=== PATIENT | female | born 1970 | race Caucasian/White ===

== ENCOUNTER 2017-07-06 12:26 | Inpatient (IN) ==
[2017-07-06] MEDS ORDERED: Isovue-370 500 ML INFUS..BTL IV ONE (12:39)
[2017-07-06] MEDS ORDERED: Aspirin 81 MG TAB.CHEW PO ONE (12:42)
[2017-07-06] MEDS ORDERED: 0.9 % Sodium Chloride 1,000 ML IVC ONE ×2 (12:43→14:41)
[2017-07-06] MEDS ORDERED: *HR* Promethazine 25 MG/ML VIAL IVP ONE (12:43)
--- NOTE | 2017-07-06 12:46 | Emergency Department Note ---
Disposition Clinical Impression: Hyperglycemia Chest pain Qualifiers: Chest pain type: unspecified Qualified Code(s): R07.9 - Chest pain, unspecified Sepsis Qualifiers: Sepsis type: sepsis due to unspecified organism Qualified Code(s): A41.9 - Sepsis, unspecified organism Pneumonia Qualifiers: Pneumonia type: due to unspecified organism Laterality: left Lung location: unspecified part of lung Qualified Code(s): J18.9 - Pneumonia, unspecified organism Disposition: Admitted As Inpatient Condition: Fair Time of Disposition: 14:42 General Adult HPI - General Stated complaint: LAKESHA Time Seen by Provider: 07/06/17 12:31 Source: patient Mode of arrival: ambulatory Limitations: no limitations Nursing Notes Reviewed: Yes Vital Signs Reviewed: Yes - History of Present Illness HPI Narrative: 47 -year-old female with a history of diet-controlled diabetes and hyperlipidemia presents for evaluation of chest pain and shortness of breath. Patient states symptom onset was earlier today. Patient noted chest pain as well as shortness of breath. Chest pain is left sided with radiation of the left shoulder. Patient denies history of heart attacks. Patient notes chest pain is worse with deep inspiration. Patient denies any fevers but does note a thick sputum production. Patient denies any nausea or vomiting. Denies history of smoking. Denies history of blood clots in her lungs or her legs. Patient denies being on any oral contraceptive pills. States he has had her uterus removed. Patient denies any abdominal pain. No lower leg swelling. Pain Scale: 6 - Related Data Home Medications Medication Instructions Recorded Confirmed Atorvastatin Calcium [Lipitor] 20 mg PO DAILY 01/23/17 07/06/17 Cinnamon Bark [Cinnamon] 500 mg PO DAILY 01/23/17 07/06/17 Flaxseed Oil [[place]-3 Flaxseed Oil] 1,000 mg PO DAILY 01/23/17 07/06/17 [place]-3S/Dha/Epa/Fish Oil [Fish 1 tab PO DAILY 01/23/17 07/06/17 Oil [place]-3 Softgel] Allergies Allergy/AdvReac Type Severity Reaction Status Date / Time Penicillins Allergy Hives Verified 02/16/17 13:31 aspirin AdvReac Vomiting Verified 02/16/17 13:31 All systems ED: reviewed and negative except as stated. Constitutional: Denies: fever Cardiovascular: Reports: chest pain Respiratory: Reports: cough, dyspnea, sputum production Gastrointestinal: Denies: abdominal pain, nausea, vomiting Past Medical History - Past Medical History Source: patient Medical history: Reports: diabetes, hyperlipidemia Surgical history: Reports: hysterectomy Psychiatric history: Reports: no psych history - Social History Smoking Status: Never smoker Smokeless Tobacco Status: No Alcohol use: Reports: none Drug use: Reports: none Physical Exam - General Limitations: no limitations General appearance: alert, in no apparent distress - Head Head exam: atraumatic, normocephalic, normal inspection - Eye Eye exam: Present: normal appearance, PERRL, EOMI - ENT ENT exam: normal exam - Neck Neck exam: Present: normal inspection, trachea midline - Chest Chest inspection: Present: normal inspection, symmetric chest wall rise. Absent : tenderness - Respiratory Respiratory exam: Present: normal lung sounds bilaterally. Absent: respiratory distress, wheezes, prolonged expiratory phase - Cardiovascular Cardiovascular exam: Present: regular rate - Abdominal Exam Abdominal exam: Present: soft, Non-Tender - Extremities Exam Extremities exam: Present: normal inspection. Absent: pedal edema - Expanded Lower Extremity Exam Neurovascular/Tendon exam: Present: normal capillary refill - Back Exam Back exam: Present: normal inspection - Neurological Exam Neurological exam: Present: alert, oriented X3, CN II-XII intact - Skin Skin exam: Present: warm, dry, intact, normal color Course Course Narrative: Patient seen and examined. Patient appears quite anxious. Patient does have risk factors for ACS as well as pulmonary embolism. Patient will get a CT scan of the chest. Patient will also get basic lab work including troponin, EKG. Disposition pending. - Reevaluation(s) Reevaluation #1: Patient seen and examined. Patient states that her pain is better controlled. Resting comfortably. Time: 14:42 Vital Signs Temperature 99.6 F 07/06/17 12:28 Pulse Rate 105 07/06/17 12:28 Respiratory Rate 54 07/06/17 12:28 Blood Pressure 157/81 07/06/17 12:28 O2 Sat by Pulse Oximetry 91 07/06/17 12:28 Temperature 98 F 07/06/17 15:15 Pulse Rate 105 07/06/17 12:53 Respiratory Rate 20 07/06/17 15:15 Blood Pressure 131/71 07/06/17 15:15 O2 Sat by Pulse Oximetry 98 04/30/18 12:54 Oxygen Delivery Oxygen Delivery Room Air Medical Decision Making - MDM Narrative Medical decision making narrative: Patient presented with tachycardia tachypnea. Patient did have a concerning history of pleuritic chest pain. Patient had a CT [place] chest which revealed the etiology of the patient's symptoms. Patient has a lingula pneumonia consistent with her symptoms of productive cough. Patient also meet SIRS criteria with her tachycardia, tachypnea as well as her elevated white count. Given the patient's abnormal vitals as well as identify a source of infection the patient will be admitted to the hospital service for further evaluation monitoring to ensure symptom resolution. Patient will be treated for community acquired pneumonia. Patient did have chest pain is social with this but we believe this is strictly related the patient's pneumonia less likely related to ACS. - Lab Data Lab results reviewed: Yes I reviewed the patient's lab results. Result diagrams: 07/06/17 12:49 07/06/17 12:49 Lab Results 07/06/17 07/06/17 07/06/17 Range/Units 12:39 12:39 12:49 WBC 19.7 H (4.3-11.1) K/mcL RBC 5.31 H (3.82-4.97) M/mcL Hgb 14.8 (11.5-15.4) g/dL Hct 44.5 (35.3-44.9) % MCV 83.8 (83.0-100.0) fL MCH 27.9 L (28.0-33.3) pg MCHC 33.3 (31.6-35.5) g/dL RDW 13.0 (11.5-14.5) % Plt Count 382 (140-400) K/mcL MPV 10.5 (9.4-12.4) fL Immature Gran % 0.6 (0-4) % Seg Neutrophils % 88.1 % Lymphocytes % 5.3 % Monocytes % 5.6 % Eosinophils % 0.0 % Basophils % 0.4 % Neutrophils # 17.4 H (1.6-8.9) K/mcL Lymphocytes # 1.1 (0.6-4.6) K/mcL Monocytes # 1.1 (0.0-1.3) K/mcL Eosinophils # 0.0 (0.0-0.6) K/mcL Basophils # 0.1 (0.0-0.2) K/mcL Sodium (136-145) mEq/L Potassium (3.5-5.1) mEq/L Chloride (98-107) mEq/L Carbon Dioxide (23-29) mEq/L BUN (6-20) mg/dL Creatinine (0.60-1.20) mg/dL Est GFR ( Amer) (> 60) Est GFR (Non-Af Amer) (> 60) BUN/Creatinine Ratio (6-26) Glucose (70-105) mg/dL Calculated Osmolality (280-300) Calcium (8.6-10.3) mg/dL Troponin I (< 0.04) ng/mL B-Natriuretic Peptide 111 H (Less than 100) pg/mL Lipase 16 (11-82) Units/L 07/06/17 Range/Units 12:49 WBC (4.3-11.1) K/mcL RBC (3.82-4.97) M/mcL Hgb (11.5-15.4) g/dL Hct (35.3-44.9) % MCV (83.0-100.0) fL MCH (28.0-33.3) pg MCHC (31.6-35.5) g/dL RDW (11.5-14.5) % Plt Count (140-400) K/mcL MPV (9.4-12.4) fL Immature Gran % (0-4) % Seg Neutrophils % % Lymphocytes % % Monocytes % % Eosinophils % % Basophils % % Neutrophils # (1.6-8.9) K/mcL Lymphocytes # (0.6-4.6) K/mcL Monocytes # (0.0-1.3) K/mcL Eosinophils # (0.0-0.6) K/mcL Basophils # (0.0-0.2) K/mcL Sodium 133 L (136-145) mEq/L Potassium 3.9 (3.5-5.1) mEq/L Chloride 98 (98-107) mEq/L Carbon Dioxide 25 (23-29) mEq/L BUN 10 (6-20) mg/dL Creatinine 0.77 (0.60-1.20) mg/dL Est GFR ( Amer) > 60 (> 60) Est GFR (Non-Af Amer) > 60 (> 60) BUN/Creatinine Ratio 13 (6-26) Glucose 268 H (70-105) mg/dL Calculated Osmolality 284 (280-300) Calcium 9.5 (8.6-10.3) mg/dL Troponin I < 0.03 (< 0.04) ng/mL B-Natriuretic Peptide (Less than 100) pg/mL Lipase (11-82) Units/L - Radiology Data Radiology results reviewed: Yes I reviewed the patient's radiology results. Chest CTA 07/06/17 12:39 IMPRESSION: 1. No evidence of pulmonary embolism. 2. Dense consolidation in the lingula. Pattern may represent acute pneumonia. Recommend correlation with clinical findings. Follow-up imaging is recommended to ensure resolution and to exclude an underlying mass. 3. Reactive mediastinal and left hilar lymph node enlargement. D/ / Dashawn Dangelo MD / Dashawn Dangelo MD Interpreting Provider: Dashawn Dangelo MD Chest X-Ray 07/06/17 12:39 IMPRESSION: 1. Mild perihilar vascular prominence may be related to low volumes versus minimal vascular congestion. D/ / 07/06/2017 13:50:46 Candie Carrillo MD [facility] Inter[facility] Provider: Candie Carrillo MD - EKG Data EKG #1 EKG attestation: Yes I reviewed and interpreted this EKG. EKG shows normal: sinus rhythm Rate: tachycardia Rhythm: NSR [place]/QRS: left axis deviation, IVCD Interpretation: no acute changes, nonspecific ST-T wave changes S.B.A.REmily - S.B.A.REmily Situation: Demographics Background: Presenting Complaint Assessment: Vital Signs, Course and respsone to treatment, Patient/Family Expectation Recommendation: Barrier(s) to disposition S.B.A.REmily Report Given to: Dr. Chelsea Sanders Repor Time: 14:46
[2017-07-06] MEDS: Nitroglycerin 0.4 MG TAB.SUBL SL ONE ×3 (13:20→13:30)
[2017-07-06] MEDS ORDERED: *HR* FentaNYL (PF) 100 MCG/2 ML VIAL IVP ONE (13:23)
--- NOTE | 2017-07-06 13:24 | Emergency Department Note ---
Disposition Clinical Impression: Hyperglycemia Chest pain Qualifiers: Chest pain type: other chest pain Qualified Code(s): R07.89 - Other chest pain Sepsis Qualifiers: Sepsis type: sepsis due to unspecified organism Qualified Code(s): A41.9 - Sepsis, unspecified organism Pneumonia Qualifiers: Pneumonia type: due to unspecified organism Laterality: left Lung location: unspecified part of lung Qualified Code(s): J18.9 - Pneumonia, unspecified organism Disposition: Admitted As Inpatient Condition: Fair General Adult HPI - General Chief complaint: ED Shortness of Breath/Dyspnea Stated complaint: LAKESHA Time Seen by Provider: 07/06/17 12:31 Source: patient Mode of arrival: ambulatory Limitations: no limitations - History of Present Illness Pain Scale: 6 - Related Data Home Medications Medication Instructions Recorded Confirmed Atorvastatin Calcium [Lipitor] 20 mg PO DAILY 01/23/17 07/06/17 Cinnamon Bark [Cinnamon] 500 mg PO DAILY 01/23/17 07/06/17 Flaxseed Oil [[place]-3 Flaxseed Oil] 1,000 mg PO DAILY 01/23/17 07/06/17 [place]-3S/Dha/Epa/Fish Oil [Fish 1 tab PO DAILY 01/23/17 07/06/17 Oil [place]-3 Softgel] Allergies Allergy/AdvReac Type Severity Reaction Status Date / Time Penicillins Allergy Hives Verified 02/16/17 13:31 aspirin AdvReac Vomiting Verified 02/16/17 13:31 Constitutional: Denies: fever Cardiovascular: Reports: chest pain Respiratory: Reports: cough, dyspnea, sputum production Gastrointestinal: Denies: abdominal pain, nausea, vomiting Past Medical History - Past Medical History Medical history: Reports: diabetes, hyperlipidemia Surgical history: Reports: hysterectomy Psychiatric history: Reports: no psych history - Social History Smoking Status: Never smoker Smokeless Tobacco Status: No Alcohol use: Reports: none Drug use: Reports: none Physical Exam - General Limitations: no limitations General appearance: alert, in no apparent distress Course Vital Signs Temperature 99.6 F 07/06/17 12:28 Pulse Rate 105 07/06/17 12:28 Respiratory Rate 54 07/06/17 12:28 Blood Pressure 157/81 07/06/17 12:28 O2 Sat by Pulse Oximetry 91 07/06/17 12:28 Temperature 101.6 F H 07/06/17 18:32 Pulse Rate 99 07/06/17 18:32 Respiratory Rate 16 07/06/17 18:32 Blood Pressure 145/83 07/06/17 18:32 O2 Sat by Pulse Oximetry 95 07/06/17 18:32 Oxygen Delivery Oxygen Delivery Room Air Medical Decision Making - Lab Data Result diagrams: 07/06/17 12:49 07/06/17 12:49 Lab Results 07/06/17 07/06/17 07/06/17 Range/Units 12:39 12:39 12:49 WBC 19.7 H (4.3-11.1) K/mcL RBC 5.31 H (3.82-4.97) M/mcL Hgb 14.8 (11.5-15.4) g/dL Hct 44.5 (35.3-44.9) % MCV 83.8 (83.0-100.0) fL MCH 27.9 L (28.0-33.3) pg MCHC 33.3 (31.6-35.5) g/dL RDW 13.0 (11.5-14.5) % Plt Count 382 (140-400) K/mcL MPV 10.5 (9.4-12.4) fL Immature Gran % 0.6 (0-4) % Seg Neutrophils % 88.1 % Lymphocytes % 5.3 % Monocytes % 5.6 % Eosinophils % 0.0 % Basophils % 0.4 % Neutrophils # 17.4 H (1.6-8.9) K/mcL Lymphocytes # 1.1 (0.6-4.6) K/mcL Monocytes # 1.1 (0.0-1.3) K/mcL Eosinophils # 0.0 (0.0-0.6) K/mcL Basophils # 0.1 (0.0-0.2) K/mcL Sodium (136-145) mEq/L Potassium (3.5-5.1) mEq/L Chloride (98-107) mEq/L Carbon Dioxide (23-29) mEq/L BUN (6-20) mg/dL Creatinine (0.60-1.20) mg/dL Est GFR ( Amer) (> 60) Est GFR (Non-Af Amer) (> 60) BUN/Creatinine Ratio (6-26) Glucose (70-105) mg/dL Calculated Osmolality (280-300) Calcium (8.6-10.3) mg/dL Troponin I (< 0.04) ng/mL B-Natriuretic Peptide 111 H (Less than 100) pg/mL Lipase 16 (11-82) Units/L 07/06/17 Range/Units 12:49 WBC (4.3-11.1) K/mcL RBC (3.82-4.97) M/mcL Hgb (11.5-15.4) g/dL Hct (35.3-44.9) % MCV (83.0-100.0) fL MCH (28.0-33.3) pg MCHC (31.6-35.5) g/dL RDW (11.5-14.5) % Plt Count (140-400) K/mcL MPV (9.4-12.4) fL Immature Gran % (0-4) % Seg Neutrophils % % Lymphocytes % % Monocytes % % Eosinophils % % Basophils % % Neutrophils # (1.6-8.9) K/mcL Lymphocytes # (0.6-4.6) K/mcL Monocytes # (0.0-1.3) K/mcL Eosinophils # (0.0-0.6) K/mcL Basophils # (0.0-0.2) K/mcL Sodium 133 L (136-145) mEq/L Potassium 3.9 (3.5-5.1) mEq/L Chloride 98 (98-107) mEq/L Carbon Dioxide 25 (23-29) mEq/L BUN 10 (6-20) mg/dL Creatinine 0.77 (0.60-1.20) mg/dL Est GFR ( Amer) > 60 (> 60) Est GFR (Non-Af Amer) > 60 (> 60) BUN/Creatinine Ratio 13 (6-26) Glucose 268 H (70-105) mg/dL Calculated Osmolality 284 (280-300) Calcium 9.5 (8.6-10.3) mg/dL Troponin I < 0.03 (< 0.04) ng/mL B-Natriuretic Peptide (Less than 100) pg/mL Lipase (11-82) Units/L Critical Care Time Critical Care Time: Yes Total Critical Care Time: 40 Attestation: Critical care performed: Time is exclusive of separately billable procedures. Time includes: direct patient care, patient reassessment, coordination of patient care, interpretation of data (laboratory data, radiology data, and respiratory data), review of patient's medical records, medical consultation and documentation of patient care. Procedures included in critical care time: Procedures excluded from critical care time: Attestation Statement - Attestation Attestation: I examined this patient and my medical decision-making was reviewed with the Resident Physician. I agree with the documented findings, disposition and treatment plan as described except to the extent set forth below. She presents to the ED with chest pain and trouble breathing. Patient states she has had a productive cough for a couple weeks. Today she woke up short of breath having chest pain. No fever. No abdominal pain. No pain or swelling in her legs. No history of PE. On examination she is tachycardic. Rapid shallow breathing with clear lungs. Plan. Cardiac workup CTA chest. CTA shows a lingular pneumonia. Patient's tachycardic with a white count. She meets sepsis criteria. She is given IV Levaquin. Admitted to medicine.
[2017-07-06 13:34] LABS: Basophils # 0.1 K/mcL (0.0-0.2); Basophils % 0.4 %; Hematocrit 44.5 % (35.3-44.9); Hemoglobin 14.8 g/dL (11.5-15.4); Immature Granulocytes % 0.6 % (0-4); Lymphocytes # 1.1 K/mcL (0.6-4.6); Lymphocytes % 5.3 %; Mean Corpuscular HGB Conc 33.3 g/dL (31.6-35.5); Mean Corpuscular Hemoglobin 27.9 pg (28.0-33.3); Mean Corpuscular Volume 83.8 fL (83.0-100.0); Mean Platelet Volume 10.5 fL (9.4-12.4); Monocytes # 1.1 K/mcL (0.0-1.3); Monocytes % 5.6 %; Neutrophils # 17.4 K/mcL (1.6-8.9); Platelet Count 382 K/mcL (140-400); Red Blood Count 5.31 M/mcL (3.82-4.97); Segmented Neutrophils % 88.1 %
[2017-07-06 13:41] LABS: BUN/Creatinine Ratio 13 (6-26); Blood Urea Nitrogen 10 mg/dL (6-20); Calcium 9.5 mg/dL (8.6-10.3); Carbon Dioxide 25 mEq/L (23-29); Chloride 98 mEq/L (98-107); Glucose 268 mg/dL (70-105); Osmolality,Calculated 284 (280-300); Potassium 3.9 mEq/L (3.5-5.1); Sodium 133 mEq/L (136-145); Troponin I < 0.03 ng/mL (< 0.04); eGFR For African Americans > 60 (> 60); eGFR For Non-African Americans > 60 (> 60)
[2017-07-06] MEDS ORDERED: Levofloxacin 750 MG/150 ML 750 MG/150 ML BAG IVPB ONE (14:40)
[2017-07-06] MEDS ORDERED: Naloxone 0.4 MG/ML INJ IVP PRN (17:19)
[2017-07-06] MEDS ORDERED: Dextrose Gel 15 GM/37.5 ML TUBE PO PRN ×2 (17:24)
[2017-07-06] MEDS ORDERED: *HR* Dextrose 50 % in Water (Syg) 50 ML SYRINGE IVP PRN (17:24)
[2017-07-06] MEDS ORDERED: D5% in Water 1,000 ML IVC PRN (17:24)
[2017-07-06] MEDS ORDERED: *HR* Promethazine 25 MG/ML VIAL IVP PRN (17:29)
[2017-07-06] MEDS ORDERED: Nitroglycerin 0.4 MG TAB.SUBL SL PRN (17:29)
[2017-07-06] MEDS: Acetaminophen 325 MG TABLET PO PRN (17:47)
[2017-07-06] MEDS: Azithromycin 500 MG in D5% in Water 250 ML IVPB SCH (18:14)
[2017-07-06] MEDS: 0.9 % Sodium Chloride 1,000 ML IVC SCH (18:14)
[2017-07-06] MEDS: cefTRIAXone 2,000 MG in Water for inj. (sterile) 20 ML 20 ML IVPB SCH ×2 (18:21→19:41)
--- NOTE | 2017-07-06 18:27 | Internal Med History&Physical ---
<AnnaJason Shrestha - Last Filed: 07/06/17 19:44> Date of Encounter: 07/06/17 Time of Encounter: 17:00 Internal Medicine - H&P: HPI Chief complaint: SOB/Dyspnea/CP Admitted From: Emergency Dept Plans for Post Hospital Care: Home History of present illness: Ms. Charles is a 47 year old female w/PMH of DM and HLD presents from the ED w/ CC of SOB, dyspnea, and CP that began this morning and was accompanied by chills , nausea, and vomiting. Denies cardiac hx. Describes CP as left-sided pain/ pressure w/radiation to left shoulder. Reports cough w/rust-colored sputum. SOB worse w/exertion. Denies fever, sick contacts, or hx of PE/DVTs. Pt. states not feeling well for the past several days. States DM controlled w/diet currently. Denies recent illness, diarrhea, constipation, headache, changes in vision, unusual bleeding, abdominal pain, numbness, tingling, dizziness, lightheadedness , pre-syncope, or syncope. Past Med Surg Social Fam HX - Past Medical History Source: patient, old records reviewed, obtained from family Medical history: diabetes, hyperlipidemia Psychiatric history: no psych history - Past Surgical History Surgical History: hysterectomy (Total) - Social History Smoking Status: Former smoker Packs per day: 2 PPD - Reports quitting 16 years ago Smokeless Tobacco Status: No Alcohol use: none Drug use: none Current living situation: Home, With Family Activity Level: Independent ambulation Recent Out of Country Travel Within the Last 8 Weeks: No Exposure or Possible Exposure to Illness During Travel: No - Family History Mother Race: Family Member Ethnicity: Non- Living Status: Still Living Hx Family Cardiac Disorders: Yes (HTN, HLD) Hx Family Endocrine Disorder: Yes (DM) Father Race: Family Member Ethnicity: Non- Living Status: Still Living Hx Family Cardiac Disorders: Yes (HTN, ) Hx Family Cancer: Yes (Polycythemia vera) Hx Family Neurologic Disorders: Yes (Dementia) Brother Race: Family Member Ethnicity: Non- Living Status: Still Living Hx Family Medical Disorders: No Sister Race: Family Member Ethnicity: Non- Living Status: Still Living Hx Family Medical Disorders: No Internal Medicine - H&P: Meds Atorvastatin Calcium [Lipitor] 20 mg PO DAILY 01/23/17 [History] Cinnamon Bark [Cinnamon] 500 mg PO DAILY 01/23/17 [History] Flaxseed Oil [[place]-3 Flaxseed Oil] 1,000 mg PO DAILY 01/23/17 [History] [place]-3S/Dha/Epa/Fish Oil [Fish Oil [place]-3 Softgel] 1 tab PO DAILY 01/23/17 [ History] 3 Allergy/AdvReac Type Severity Reaction Status Date / Time Penicillins Allergy Hives Verified 02/16/17 13:31 aspirin AdvReac Vomiting Verified 02/16/17 13:31 All Systems PM: A 10-system review of systems was performed and is negative for pertinent findings except as documented above in the HPI. - Constitutional Constitutional: as per HPI, chills, no night sweats - EENT Eyes: no change in vision, no discharge, no pain, no photophobia Ears: no ear discharge, no ear pain, no tinnitus Nose, mouth and throat: no dysphagia, no nasal discharge, no neck pain, no sore throat - Breasts Breasts: as per HPI - Cardiovascular Cardiovascular ROS IM: as per HPI, chest pain, dyspnea, dyspnea on exertion, no diaphoresis, no lightheadedness, no palpitations, no syncope - Respiratory Respiratory: as per HPI, cough, dyspnea, dyspnea on exertion, change in phlegm color, pain with cough, no wheezing, no excessive phlegm production - Gastrointestinal Gastrointestinal: as per HPI, nausea, vomiting, no abdominal pain, no diarrhea, no hematemesis, no hematochezia, no melena - Genitourinary Genitourinary: no change in urinary stream, no dysuria, no flank pain, no hematuria Menstruation: as per HPI, post hysterectomy (Total) - Musculoskeletal Musculoskeletal ROS IM: no numbness, no tingling - Integumentary Integumentary IM: no rash, no unusual bruising - Neurological Neurological ROS: no confusion, no convulsions, no focal weakness, no numbness, no tingling, no tremor(s) - Psychiatric Psychiatric: as per HPI - Endocrine Endocrine IM: as per HPI - Hematologic/Lymphatic Hematologic/Lymphatic: no easy bruising - Allergic/Immunologic Allergic/Immunologic: as per HPI - Constitutional Vitals: Temp Pulse Resp BP Pulse Ox 99.4 F 95 16 117/74 95 04/30/18 16:56 07/06/17 16:56 07/06/17 16:56 07/06/17 16:56 07/06/17 16:56 General appearance: Present: cooperative, A&O X 3, pleasant, no acute distress, obese, answers questions appropriately - Head Head exam: Present: atraumatic, normocephalic - Eye Eye exam: Present: PERRL, conjuntiva pink, sclera anicteric Pupils: Present: PERRL - ENT ENT exam: Present: normal exam - Neck Neck exam general surgery: Present: normal inspection, supple, trachea midline. Absent: lymphadenopathy - Respiratory Respiratory exam: Present: CTAB, tachypnea. Absent: accessory muscle use, rales , rhonchi, wheezes - Cardiovascular Cardiovascular exam: Present: +S1, +S2, tachycardia. Absent: diastolic murmur, gallop, rubs, systolic murmur - GI/Abdominal GI/Abdominal exam: Present: normal bowel sounds, soft, no peritoneal signs. Absent: distended, tenderness - Rectal Rectal exam: Present: deferred - Additional comments: exam deferred. - Extremities Exam Extremities exam: Present: warm, radial pulses palpable and symmetrical. Absent : calf tenderness, cyanotic, pedal edema - Back Exam Back exam: Present: normal inspection - Neurological Exam Neurological exam: Present: CN II-XII intact, oriented X3, no focal deficits. Absent: pronater drift, facial droop, speech deficit - Psychiatric Psychiatric exam: Present: normal affect, normal mood - Skin Skin exam: Present: dry, intact Internal Med - H&P Results - Labs CBC & Chem 7: 07/06/17 12:49 07/06/17 12:49 - Diagnostic Studies Chest x-ray Additional comments: Impressions Chest X-Ray 07/06/17 12:39 IMPRESSION: 1. Mild perihilar vascular prominence may be related to low volumes versus minimal vascular congestion. D/ / 07/06/2017 13:50:46 Candie Carrillo MD / [facility] Inter[facility] Provider: Candie Carrillo MD CT scan - chest Additional comments: Impressions Chest CTA 07/06/17 12:39 IMPRESSION: 1. No evidence of pulmonary embolism. 2. Dense consolidation in the lingula. Pattern may represent acute pneumonia. Recommend correlation with clinical findings. Follow-up imaging is recommended to ensure resolution and to exclude an underlying mass. 3. Reactive mediastinal and left hilar lymph node enlargement. D/ / Dashawn Dangelo MD / Dashawn Dangelo MD Interpreting Provider: Dashawn Dangelo MD - Assessment and plan (1) CAP (community acquired pneumonia) Current Visit: Yes Status: Acute Assessment and plan: Acute CAP. CTA of the chest today shows no evidence PE but dense consolidation in the lingula. Pattern may represent acute pneumonia. Recommend correlation with clinical findings and follow-up imaging recommended to ensure resolution and to exclude underlying mass. Reactive mediastinal and left hilar lymph node enlargement. Pt. denies recent hospitalization. Acute SOB, dyspnea, cough w/ rust sputum, and CP to left side of chest. Pt. given IVPB levaquin in ED which will be DCd and will administer IVPB ceftriaxone 2,000 mg daily and IVPB azithromycin 500 mg daily for infection coverage. Will adjust abx coverage based on culture and panel results if warranted. Timed lactic acids ordered. 650 mg Tylenol Q6HR PRN and 600 mg Motrin Q6HR PRN to be alternated for fever control. Pt. and f/u labs to be monitored closely for signs of increasing infection/septic shock. Continuous cardiac telemetry. Supplemental O2 w/ titration and SpO2 monitoring. DuoNebs Q6HR scheduled. Tessalon 200 mg TID for cough. Pt. discussed w/Dr. Tran who agrees w/plan of care. Pt. is high risk for further infection, morbidity, and septic shock based on current sx and sepsis criteria. Inpatient. Qualifiers: Laterality: unspecified laterality Qualified Code(s): J18.9 - Pneumonia, unspecified organism (2) Sepsis Current Visit: Yes Status: Acute Assessment and plan: Acute sepsis criteria w/WBC of 19.7, HR 105, RR 24, temp 101.6F, and suspected pneumonia. Pt. received two 1L IV fluid boluses to be continued by 125 mL/HR. Lactic acid ordered which is 1.6 currently. Blood cultures x2. Sputum culture ordered. Respiratory Infection panel ordered. Pt. given IVPB levaquin in ED. Will DC and administer IVPB ceftriaxone 2,000 mg daily and IVPB azithromycin 500 mg daily for infection coverage. Will adjust abx coverage based on culture and panel results if warranted. Timed lactic acids ordered. 650 mg Tylenol Q6HR PRN and 600 mg Motrin Q6HR PRN to be alternated for fever control. Pt. and f/u labs to be monitored closely for signs of increasing infection/septic shock. Continuous cardiac telemetry. Supplemental O2 w/titration and SpO2 monitoring. Qualifiers: Sepsis type: sepsis due to unspecified organism Qualified Code(s): A41.9 - Sepsis, unspecified organism (3) Chest pain Current Visit: Yes Status: Acute Assessment and plan: Acute CP described as left-sided w/radiation to left shoulder. Cardiac versus CAP. CTA of the chest shows no evidence of pulmonary embolism, dense consolidation in the lingula which may represent pneumonia (recommendation for follow-up imaging to ensure resolution and to exclude underlying mass), reactive mediastinal and left hilar lymph node enlargement. Denies cardiac hx or work-up. Given 324 mg aspirin in ED. Lipitor 80 mg now ordered to be followed by 20 mg regular daily dosing tomorrow. Initial troponin <0.03. Will trend. Echocardiogram. Continuous cardiac telemetry. Nitro SL PRN. Consider cardiology consult if troponins begin to elevate or echo results abnormal. Monitor pt. closely. Qualifiers: Chest pain type: other chest pain Qualified Code(s): R07.89 - Other chest pain; R07.8 - Other chest pain (4) Nausea & vomiting Current Visit: Yes Status: Acute Assessment and plan: Acute N/V this morning. Phenergan 12.5 mg IVP every 6 hours when necessary for nausea vomiting. IVP Protonix 40 mg daily. Qualifiers: Vomiting type: cyclical vomiting Vomiting Intractability: non-intractable Qualified Code(s): G43.A0 - Cyclical vomiting, not intractable (5) SOB (shortness of breath) Current Visit: Yes Status: Acute Assessment and plan: Acute SOB related to current CAP dx. Denies home oxygen use. Supplemental O2 with titration and SPO2 monitoring. DuoNeb's every 6 scheduled. Tessalon 200 mg by mouth 3 times a day. (6) Elevated brain natriuretic peptide (BNP) level Current Visit: Yes Status: Acute Assessment and plan: Mildly elevated BNP at 111 on admission. No CHF hx. Getting echocardiogram d/t CP. Will monitor fluid status d/t need for IV fluids from sepsis. Monitor I&O and daily weight. (7) Hyponatremia Current Visit: Yes Status: Acute Assessment and plan: Acute hyponatremia w/sodium of 133 on admission. Pt. receiving IV 0.9 NS per sepsis criteria. Will monitor sodium level in f/u labs. (8) Diabetes Current Visit: Yes Status: Chronic Assessment and plan: Hx of chronic DM controlled by diet currently. BG 268 on admission. A1c in a.m. labs. BG checks ACHS. Will add low-dose correction insulin sliding scale w/ hypoglycemic protocol. 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 Lipid panel in a.m. labs. Continue pts. Lipitor. Qualifiers: Hyperlipidemia type: pure hypercholesterolemia Qualified Code(s): E78.00 - Pure hypercholesterolemia, unspecified; E78.0 - Pure hypercholesterolemia (10) DVT prophylaxis Current Visit: Yes Status: Acute Assessment and plan: Lovenox 40 mg SQ 0600 daily for DVT prophylaxis. Monitor pt. for signs of bleeding. - Time Spent With Patient Total time spent is greater than 50% in coordination of care (as documented) at patient's floor/unit and/or counseling patient: Greater than 35 minutes <Oren Tran - Last Filed: 07/07/17 07:12> Date of Encounter: 07/07/17 Internal Medicine - H&P: HPI History of present illness: Ms. Charles is a 47 year old female All Systems PM: A 10-system review of systems was performed and is negative for pertinent findings except as documented above in the HPI. - Constitutional Vitals: Temp Pulse Resp BP Pulse Ox 98.2 F 89 14 121/82 98 07/07/17 04:18 07/07/17 04:18 07/07/17 04:18 07/07/17 04:18 07/07/17 04:18 Internal Med - H&P Results - Labs CBC & Chem 7: 07/07/17 00:36 07/07/17 00:36 Labs: Short CBC 07/07/17 Range/Units 00:36 WBC 14.9 H (4.3-11.1) K/mcL Hgb 11.9 D (11.5-15.4) g/dL Hct 36.4 (35.3-44.9) % Plt Count 264 (140-400) K/mcL Neutrophils # 12.2 H (1.6-8.9) K/mcL BMP 07/07/17 00:36 Sodium 138 Potassium 3.5 Chloride 105 Carbon Dioxide 25 BUN 8 Creatinine 0.66 Glucose 194 H Calcium 8.6 Cardiac Enzymes 07/06/17 07/07/17 Range/Units 18:02 00:36 Troponin I < 0.03 < 0.03 (< 0.04) ng/mL Liver Function 07/07/17 Range/Units 00:36 Total Bilirubin 1.2 H (0.3-1.0) mg/dL AST 11 L (13-39) Units/L ALT 14 (7-52) Units/L Alkaline Phosphatase 64 (34-104) Units/L Albumin 3.6 (3.5-5.7) g/dL - Attending Attestation I saw and examined this patient independently, and my medical decision making was reviewed with the CHECKERER HAND/PA on 2017. I agree with the documented findings, assessment and treatment plan as described in the H&P. - Time Spent With Patient Total time spent is greater than 50% in coordination of care (as documented) at patient's floor/unit and/or counseling patient:
[2017-07-06] MEDS ORDERED: cefTRIAXone 2,000 MG in Water for inj. (sterile) 20 ML 20 ML IVP SCH (18:30)
[2017-07-06] MEDS ORDERED: Benzonatate 100 MG CAPSULE PO PRN (18:46)
[2017-07-06] MEDS: Pantoprazole 40 MG VIAL IVP SCH (19:51)
[2017-07-06 20:12] LABS: Adenovirus Not Detected (Not Detect); Bordetella Pertussis Not Detected (Not Detect); Chlamydophila pneumoniae Not Detected (Not Detect); Coronavirus 229E Not Detected (Not Detect); Coronavirus HKU1 Not Detected (Not Detect); Coronavirus NL63 Not Detected (Not Detect); Coronavirus OC43 Not Detected (Not Detect); Human Metapneumovirus Not Detected (Not Detect); Human Rhinovirus/Enterovirus ***DETECTED*** (Not Detect); Influenza A Subtype 2009 H1 Not Detected (Not Detect); Influenza A Untypeable Not Detected (Not Detect); Influenza B Not Detected (Not Detect); Mycoplasma pneumoniae Not Detected (Not Detect); Parainfluenza Virus 1 Not Detected (Not Detect); Parainfluenza Virus 2 Not Detected (Not Detect); Parainfluenza Virus 3 Not Detected (Not Detect); Parainfluenza Virus 4 Not Detected (Not Detect); Respiratory Syncytial Virus Not Detected (Not Detect)
[2017-07-06] MEDS ORDERED: Insulin LISPRO 300 UNITS/3 ML VIAL SQ SCH (21:00)
[2017-07-06] MEDS: Ipratropium/Albuterol Neb 3 ML IH SCH (21:27)
[2017-07-06] MEDS: Ibuprofen 400 MG TABLET PO PRN (22:12)
[2017-07-07 01:23] LABS: Basophils % 0.2 %; Hematocrit 36.4 % (35.3-44.9); Immature Granulocytes % 0.5 % (0-4); Lymphocytes # 1.1 K/mcL (0.6-4.6); Lymphocytes % 7.7 %; Mean Corpuscular HGB Conc 32.7 g/dL (31.6-35.5); Mean Corpuscular Hemoglobin 27.6 pg (28.0-33.3); Mean Corpuscular Volume 84.5 fL (83.0-100.0); Mean Platelet Volume 10.6 fL (9.4-12.4); Monocytes # 1.4 K/mcL (0.0-1.3); Monocytes % 9.5 %; Neutrophils # 12.2 K/mcL (1.6-8.9); Platelet Count 264 K/mcL (140-400); Red Blood Count 4.31 M/mcL (3.82-4.97); Red Cell Distribution Width 13.2 % (11.5-14.5); Segmented Neutrophils % 82.1 %
[2017-07-07 01:24] LABS: Hemoglobin 11.9 g/dL (11.5-15.4)
[2017-07-07 01:43] LABS: Alanine Aminotransferase 14 Units/L (7-52); Albumin 3.6 g/dL (3.5-5.7); Albumin/Globulin Ratio 1.3 (1.1-2.2); Alkaline Phosphatase 64 Units/L (34-104); Aspartate Amino Transferase 11 Units/L (13-39); BUN/Creatinine Ratio 12 (6-26); Bilirubin,Total 1.2 mg/dL (0.3-1.0); Blood Urea Nitrogen 8 mg/dL (6-20); Calcium 8.6 mg/dL (8.6-10.3); Carbon Dioxide 25 mEq/L (23-29); Chloride 105 mEq/L (98-107); Chol/HDL Ratio 2.6 (0-4.9); Cholesterol 108 mg/dL (< 200); Globulin 2.8 g/dL (2.4-3.5); Glucose 194 mg/dL (70-105); HDL Cholesterol 42 mg/dL (40-59); LDL Cholesterol,Calculated 51 mg/dL (0-99); Magnesium 1.6 mg/dL (1.6-2.6); Osmolality,Calculated 290 (280-300); Potassium 3.5 mEq/L (3.5-5.1); Sodium 138 mEq/L (136-145); Total Protein 6.4 g/dL (6.4-8.9); Triglycerides 73 mg/dL (< 150); eGFR For African Americans > 60 (> 60); eGFR For Non-African Americans > 60 (> 60)
[2017-07-07] MEDS: 0.9 % Sodium Chloride 1,000 ML IVC SCH ×2 (03:26→10:43)
[2017-07-07] MEDS: Acetaminophen 325 MG TABLET PO PRN (03:54)
[2017-07-07] MEDS: Ipratropium/Albuterol Neb 3 ML IH SCH ×4 (04:03→22:22)
[2017-07-07] MEDS: *HR* Enoxaparin 40 MG/0.4 ML SYRINGE SQ SCH (05:30)
[2017-07-07] MEDS: Ibuprofen 400 MG TABLET PO PRN ×3 (06:06→20:06)
[2017-07-07] MEDS ORDERED: Insulin LISPRO 300 UNITS/3 ML VIAL SQ SCH (07:30)
[2017-07-07] MEDS: Pantoprazole 40 MG VIAL IVP SCH (08:10)
[2017-07-07] MEDS: *HR* HYDROcodone/Acet 5/325 mg TABLET PO PRN ×2 (08:40→16:54)
[2017-07-07] MEDS: cefTRIAXone 1,000 MG in Water for inj. (sterile) 20 ML 10 ML IVP SCH (08:41)
--- NOTE | 2017-07-07 09:29 | Internal Med Progress Note ---
<Dejuan Fuentes - Last Filed: 07/07/17 11:37> Date of Encounter: 07/07/17 Time of Encounter: 09:24 - Assessment and plan (1) Sepsis Current Visit: Yes Status: Resolved Assessment and plan: - Patient was septic on presentation which has resolved - On admission, vital significant for tachycardia 105, respiratory rate 24, temperature 101.6, WBC of 19.7. lactic acid 1.6. Likely source of pneumonia - Received to 1 L normal saline boluses, started on Levaquin in emergency room which was changed to ceftriaxone and azithromycin on admission - No longer meeting SIRS criteria, however white count still elevated at 14.9 which has improved from 19.7 - Blood and sputum cultures pending - Chest x-ray and CTA showed no evidence of pulmonary embolism but did show a lingular consolidation possibly representing pneumonia - PCR positive for rhinovirus - Currently tolerating 2 L of oxygen at 98% Plan - Continue day #2 of antibiotics however will decrease ceftriaxone to 1 g every 24 hours with azithromycin - CTA shows a possible postobstructive pattern for her pneumonia and would likely benefit from a repeat scan after pneumonia has resolved - She was congratulated on smoking cessation - We will attempt to wean oxygen supplementation as tolerated Qualifiers: Sepsis type: sepsis due to unspecified organism Qualified Code(s): A41.9 - Sepsis, unspecified organism (2) Chest pain Current Visit: Yes Status: Acute Assessment and plan: - Acute chest pain which is pleuritic in nature - Pulmonary embolism was ruled out with CTA -Likely Secondary to pneumonia and coughing - Troponin was trended and negative 3 - Denies any cardiac history Plan - We will obtain echocardiogram to rule out cardiac etiology further - Symptomatic and supportive care with pain medication Qualifiers: Chest pain type: other chest pain Qualified Code(s): R07.89 - Other chest pain; R07.81 - Pleurodynia (3) CAP (community acquired pneumonia) Current Visit: Yes Status: Acute Assessment and plan: - As above for sepsis - Continue antibiotics, DuoNeb nebs, supplemental oxygen, Tessalon [place] Qualifiers: Laterality: left Lung location: unspecified part of lung Qualified Code(s ): J18.9 - Pneumonia, unspecified organism (4) Diabetes Current Visit: Yes Status: Chronic Assessment and plan: - History of diet-controlled diabetes mellitus - Hemoglobin A1c pending - Blood sugar mildly elevated today at 194 which is improved from admission - Likely elevated in the setting of infection. We will increase sliding scale to moderate Qualifiers: Diabetes mellitus type: type 2 Diabetes mellitus director long term care insulin use: without director long term care use Diabetes mellitus complication status: with unspecified complications Qualified Code(s): E11.8 - Type 2 diabetes mellitus with unspecified complications (5) SOB (shortness of breath) Current Visit: Yes Status: Acute Assessment and plan: As above for pneumonia and sepsis (6) Nausea & vomiting Current Visit: Yes Status: Resolved Assessment and plan: Resolved Phenergan 12.5 mg IVP every 6 hours when necessary for nausea vomiting. Qualifiers: Vomiting type: cyclical vomiting Vomiting Intractability: non-intractable Qualified Code(s): G43.A0 - Cyclical vomiting, not intractable (7) HLD (hyperlipidemia) Current Visit: Yes Status: Chronic Assessment and plan: - Hx of chronic HLD. Lipid panel in a.m. labs. - Lipid profile unremarkable in laboratory today - Continue home medications Qualifiers: Hyperlipidemia type: pure hypercholesterolemia Qualified Code(s): E78.00 - Pure hypercholesterolemia, unspecified (8) Elevated brain natriuretic peptide (BNP) level Current Visit: Yes Status: Acute Assessment and plan: - Mildly elevated BNP at 111 on admission. -No CHF hx. Getting echocardiogram d/t CP. - Will monitor fluid status d/t need for IV fluids from sepsis. Monitor I&O and daily weight. - Shortness of breath more likely related to lingular lobe consolidation pneumonia as above (9) DVT prophylaxis Current Visit: Yes Status: Acute Assessment and plan: Lovenox 40 mg SQ 0600 daily for DVT prophylaxis. Monitor pt. for signs of bleeding. (10) Hyponatremia Current Visit: Yes Status: Acute Assessment and plan: Resolved, currently 138 Acute hyponatremia w/sodium of 133 on admission. Pt. receiving IV 0.9 NS per sepsis criteria. Will monitor sodium level in f/u labs. - Time Spent With Patient Total time spent is greater than 50% in coordination of care (as documented) at patient's floor/unit and/or counseling patient: - Subjective Interval history: Patient was seen and examined at bedside this morning. She states that her shortness of breath has improved however she is still complaining of some mild pleuritic chest pain. Any further symptoms of fevers, chills, nausea, vomiting. States that overall she does feel better compared to admission. - Constitutional Vitals: Temp Pulse Resp BP Pulse Ox 98.3 F 82 16 111/63 94 07/07/17 07:36 07/07/17 07:36 07/07/17 07:36 07/07/17 07:36 07/07/17 07:36 General appearance: Present: cooperative, A&O X 3, pleasant, no acute distress, obese, answers questions appropriately Exam: Gen.: Vitals noted. No acute distress. AAOx3 HEENT: PERRL/EOMI, oropharynx clear, Normocephalic, atraumatic, MMM Cardiac: RRR, no murmur, +S1/S2, chest pain nonreproducible Pulmonary: Left lower lobe decreased breath sounds in the bases, equal chest expansion. Abdomen: soft, nontender, BS noted, no guarding MSK: ROM intact, no joint swelling noted Extremities: no BLE edema, nontender calf, no cyanosis or clubbing Neuro: A&Ox3, moves all extremities, no focal deficits Psych: Appropriate mood and behavior Internal Medicine: Result - Labs CBC & Chem 7: 07/07/17 00:36 07/07/17 00:36 Labs: Short CBC 07/07/17 Range/Units 00:36 WBC 14.9 H (4.3-11.1) K/mcL Hgb 11.9 D (11.5-15.4) g/dL Hct 36.4 (35.3-44.9) % Plt Count 264 (140-400) K/mcL Neutrophils # 12.2 H (1.6-8.9) K/mcL BMP 07/07/17 00:36 Sodium 138 Potassium 3.5 Chloride 105 Carbon Dioxide 25 BUN 8 Creatinine 0.66 Glucose 194 H Calcium 8.6 Cardiac Enzymes 07/06/17 07/07/17 Range/Units 18:02 00:36 Troponin I < 0.03 < 0.03 (< 0.04) ng/mL Liver Function 07/07/17 Range/Units 00:36 Total Bilirubin 1.2 H (0.3-1.0) mg/dL AST 11 L (13-39) Units/L ALT 14 (7-52) Units/L Alkaline Phosphatase 64 (34-104) Units/L Albumin 3.6 (3.5-5.7) g/dL Consult Discharge Plan - Plan Referrals: Mily Arzate, [employer]ES DIRECTOR [Primary Care Provider] - <Ricardo Tamez - Last Filed: 07/07/17 13:03> Date of Encounter: 07/07/17 - Assessment and plan (1) Pneumonia Current Visit: Yes Status: Suspected Qualifiers: Pneumonia type: due to Pneumococcus Laterality: left Lung location: lower lobe of lung Qualified Code(s): J13 - Pneumonia due to Streptococcus pneumoniae (2) Sepsis Current Visit: Yes Status: Resolved Qualifiers: Sepsis type: sepsis due to unspecified organism Qualified Code(s): A41.9 - Sepsis, unspecified organism (3) Chest pain Current Visit: Yes Status: Acute Qualifiers: Chest pain type: chest pain on breathing Qualified Code(s): R07.1 - Chest pain on breathing; R07.81 - Pleurodynia (4) Diabetes Current Visit: Yes Status: Chronic Qualifiers: Diabetes mellitus type: type 2 Diabetes mellitus director long term care insulin use: without senior living use Diabetes mellitus complication status: with hyperglycemia Qualified Code(s): E11.65 - Type 2 diabetes mellitus with hyperglycemia (5) CAP (community acquired pneumonia) Current Visit: Yes Status: Acute Qualifiers: Laterality: left Lung location: unspecified part of lung Qualified Code(s ): J18.9 - Pneumonia, unspecified organism (6) HLD (hyperlipidemia) Current Visit: Yes Status: Chronic Qualifiers: Hyperlipidemia type: mixed hyperlipidemia Qualified Code(s): E78.2 - Mixed hyperlipidemia (7) Hyponatremia Current Visit: Yes Status: Acute (8) Nausea & vomiting Current Visit: Yes Status: Resolved Qualifiers: Vomiting type: cyclical vomiting Vomiting Intractability: non-intractable Qualified Code(s): G43.A0 - Cyclical vomiting, not intractable (9) SOB (shortness of breath) Current Visit: Yes Status: Acute (10) DVT prophylaxis Current Visit: Yes Status: Acute - Time Spent With Patient Total time spent is greater than 50% in coordination of care (as documented) at patient's floor/unit and/or counseling patient: - Constitutional Vitals: Temp Pulse Resp BP Pulse Ox 98.7 F 89 18 142/82 93 07/07/17 10:50 07/07/17 10:50 07/07/17 10:50 07/07/17 10:50 07/07/17 10:50 Internal Medicine: Result - Labs CBC & Chem 7: 07/07/17 00:36 07/07/17 00:36 Labs: Short CBC 07/07/17 Range/Units 00:36 WBC 14.9 H (4.3-11.1) K/mcL Hgb 11.9 D (11.5-15.4) g/dL Hct 36.4 (35.3-44.9) % Plt Count 264 (140-400) K/mcL Neutrophils # 12.2 H (1.6-8.9) K/mcL BMP 07/07/17 00:36 Sodium 138 Potassium 3.5 Chloride 105 Carbon Dioxide 25 BUN 8 Creatinine 0.66 Glucose 194 H Calcium 8.6 Cardiac Enzymes 07/06/17 07/07/17 Range/Units 18:02 00:36 Troponin I < 0.03 < 0.03 (< 0.04) ng/mL Liver Function 07/07/17 Range/Units 00:36 Total Bilirubin 1.2 H (0.3-1.0) mg/dL AST 11 L (13-39) Units/L ALT 14 (7-52) Units/L Alkaline Phosphatase 64 (34-104) Units/L Albumin 3.6 (3.5-5.7) g/dL - Attending Attestation I examined this patient and my medical decision-making was reviewed with the Resident Physician on 07/07/17. I agree with the documented findings, disposition and treatment plan as described except to the extent set forth below. Ms Charles is currently admitted for sepsis and chest pain related to acute pneumonia. She remains moderate to high risk due to potential for worsening clinical status. Ms Charles is up in room going to bathroom. Seems somewhat dyspneic with movement but is currently off oxygen. No fever now. Still with some chest discomfort L chest and back. Coughing. Says it came on suddenly. Exam alert Mod distress due to some dyspnea Mucus membranes dry Heart reg Lungs with faint rhonchi left - no wheeze or rales Abd soft No edema I/P 1. Lingular pneumonia - most likely pneumococcus 2. sepsis 3. Chest pain related to pneumonia Further diagnoses and plan as above.
[2017-07-07 09:35] LABS: Estimated Average Glucose 200 mg/dl; Hemoglobin A1C 8.6 %
[2017-07-07] MEDS: Insulin LISPRO 300 UNITS/3 ML VIAL SQ SCH ×3 (12:14→20:44)
--- NOTE | 2017-07-07 16:11 | Electrocardiograph Report ---
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
[2017-07-07] MEDS: Azithromycin 500 MG in D5% in Water 250 ML IVPB SCH (16:54)
[2017-07-08] MEDS: *HR* HYDROcodone/Acet 5/325 mg TABLET PO PRN ×2 (02:32→12:56)
[2017-07-08] MEDS: Ipratropium/Albuterol Neb 3 ML IH SCH ×4 (03:26→21:04)
[2017-07-08] MEDS: *HR* Enoxaparin 40 MG/0.4 ML SYRINGE SQ SCH (05:37)
[2017-07-08 05:40] LABS: Basophils # 0.1 K/mcL (0.0-0.2); Basophils % 0.4 %; Eosinophils # 0.1 K/mcL (0.0-0.6); Eosinophils % 0.6 %; Hematocrit 34.4 % (35.3-44.9); Hemoglobin 11.2 g/dL (11.5-15.4); Immature Granulocytes % 0.5 % (0-4); Lymphocytes % 7.6 %; Mean Corpuscular HGB Conc 32.6 g/dL (31.6-35.5); Mean Corpuscular Hemoglobin 27.6 pg (28.0-33.3); Mean Corpuscular Volume 84.7 fL (83.0-100.0); Mean Platelet Volume 10.4 fL (9.4-12.4); Monocytes # 1.2 K/mcL (0.0-1.3); Monocytes % 8.8 %; Neutrophils # 11.1 K/mcL (1.6-8.9); Platelet Count 233 K/mcL (140-400); Red Blood Count 4.06 M/mcL (3.82-4.97); Red Cell Distribution Width 13.5 % (11.5-14.5); Segmented Neutrophils % 82.1 %
[2017-07-08 05:58] LABS: Alanine Aminotransferase 13 Units/L (7-52); Albumin 3.5 g/dL (3.5-5.7); Albumin/Globulin Ratio 1.1 (1.1-2.2); Alkaline Phosphatase 73 Units/L (34-104); Aspartate Amino Transferase 17 Units/L (13-39); BUN/Creatinine Ratio 11 (6-26); Bilirubin,Total 0.9 mg/dL (0.3-1.0); Blood Urea Nitrogen 7 mg/dL (6-20); Calcium 8.9 mg/dL (8.6-10.3); Carbon Dioxide 25 mEq/L (23-29); Chloride 103 mEq/L (98-107); Globulin 3.1 g/dL (2.4-3.5); Glucose 212 mg/dL (70-105); Osmolality,Calculated 286 (280-300); Sodium 136 mEq/L (136-145); Total Protein 6.6 g/dL (6.4-8.9); eGFR For African Americans > 60 (> 60); eGFR For Non-African Americans > 60 (> 60)
[2017-07-08] MEDS: Ibuprofen 400 MG TABLET PO PRN ×2 (08:13→23:22)
[2017-07-08] MEDS: cefTRIAXone 1,000 MG in Water for inj. (sterile) 20 ML 10 ML IVP SCH (08:14)
[2017-07-08] MEDS: Insulin LISPRO 300 UNITS/3 ML VIAL SQ SCH ×4 (08:22→21:14)
--- NOTE | 2017-07-08 10:50 | Internal Med Progress Note ---
<Dejuan Fuentes - Last Filed: 07/08/17 13:33> Date of Encounter: 07/08/17 Time of Encounter: 10:48 - Assessment and plan (1) Sepsis Current Visit: Yes Status: Resolved Assessment and plan: - Patient was septic on presentation which has resolved - On admission, vital significant for tachycardia 105, respiratory rate 24, temperature 101.6, WBC of 19.7. lactic acid 1.6. Likely source of pneumonia - Received to 1 L normal saline boluses, started on Levaquin in emergency room which was changed to ceftriaxone and azithromycin on admission - No longer meeting SIRS criteria, however white count still elevated at 13.5 which has improved from 14.9 - Blood and sputum cultures preliminary negative. - Chest x-ray and CTA showed no evidence of pulmonary embolism but did show a lingular consolidation possibly representing pneumonia - PCR positive for rhinovirus - Currently tolerating 2 L of oxygen at 92% Plan - Continue day #3 of antibiotics: ceftriaxone 1 g every 24 hours with azithromycin 250 mg Qday - CTA shows a possible postobstructive pattern for her pneumonia and would likely benefit from a repeat scan after pneumonia has resolved - She was congratulated on smoking cessation - We will attempt to wean oxygen supplementation as tolerated Qualifiers: Sepsis type: sepsis due to unspecified organism Qualified Code(s): A41.9 - Sepsis, unspecified organism (2) Chest pain Current Visit: Yes Status: Acute Assessment and plan: - Acute chest pain which is pleuritic in nature - Pulmonary embolism was ruled out with CTA -Likely Secondary to pneumonia and coughing - Troponin was trended and negative 3 - Denies any cardiac history - Echo on 07/08/17 unremarkable. Plan - Symptomatic and supportive care with pain medication Qualifiers: Chest pain type: chest pain on breathing Qualified Code(s): R07.1 - Chest pain on breathing; R07.81 - Pleurodynia (3) Diabetes Current Visit: Yes Status: Chronic Assessment and plan: - History of diet-controlled diabetes mellitus - Hemoglobin A1c 8.6%, previously diet controlled in 6s. - Blood sugar mildly elevated today at 212. - Patient is notably refusing insulin coverage as she does not take any medications at home. - Likely elevated in the setting of infection. - Advise follow up with PCP after discharge. Qualifiers: Diabetes mellitus type: type 2 Diabetes mellitus senior care insulin use: without senior care use Diabetes mellitus complication status: with hyperglycemia Qualified Code(s): E11.65 - Type 2 diabetes mellitus with hyperglycemia (4) CAP (community acquired pneumonia) Current Visit: Yes Status: Acute Assessment and plan: - As above for sepsis - Continue antibiotics, DuoNeb nebs, supplemental oxygen, Tessalon Perles Qualifiers: Laterality: left Lung location: unspecified part of lung Qualified Code(s ): J18.9 - Pneumonia, unspecified organism (5) SOB (shortness of breath) Current Visit: Yes Status: Acute Assessment and plan: As above for pneumonia and sepsis (6) Nausea & vomiting Current Visit: Yes Status: Resolved Assessment and plan: Resolved Phenergan 12.5 mg IVP every 6 hours when necessary for nausea vomiting. Qualifiers: Vomiting type: cyclical vomiting Vomiting Intractability: non-intractable Qualified Code(s): G43.A0 - Cyclical vomiting, not intractable (7) HLD (hyperlipidemia) Current Visit: Yes Status: Chronic Assessment and plan: - Hx of chronic HLD. Lipid panel in a.m. labs. - Lipid profile unremarkable in laboratory today - Continue home medications Qualifiers: Hyperlipidemia type: mixed hyperlipidemia Qualified Code(s): E78.2 - Mixed hyperlipidemia (8) Hyponatremia Current Visit: Yes Status: Resolved Assessment and plan: Resolved, currently 136 Acute hyponatremia w/sodium of 133 on admission. Pt. receiving IV 0.9 NS per sepsis criteria. Will monitor sodium level in f/u labs. (9) DVT prophylaxis Current Visit: Yes Status: Acute Assessment and plan: Lovenox 40 mg SQ 0600 daily for DVT prophylaxis. Monitor pt. for signs of bleeding. (10) Pneumonia Current Visit: Yes Status: Suspected Assessment and plan: - As above for sepsis. Community acquired. Pt reports improvement but remains SOB on exertion, diaphoretic. Qualifiers: Pneumonia type: due to Pneumococcus Laterality: left Lung location: lower lobe of lung Qualified Code(s): J13 - Pneumonia due to Streptococcus pneumoniae - Time Spent With Patient Total time spent is greater than 50% in coordination of care (as documented) at patient's floor/unit and/or counseling patient: less than 15 minutes - Subjective Interval history: Patient was seen and examined at bedside this morning. She states that her shortness of breath has improved however she is still complaining of some mild pleuritic chest pain and productive cough with brown sputum. Any further symptoms of fevers, chills, nausea, vomiting. States that overall she does feel better compared to yesterday. - Constitutional Vitals: Temp Pulse Resp BP Pulse Ox 99.6 F 100 18 154/83 92 07/08/17 08:10 07/08/17 08:10 07/08/17 08:10 07/08/17 08:10 07/08/17 08:10 General appearance: Present: cooperative, A&O X 3, pleasant, no acute distress, obese, answers questions appropriately Exam: Gen.: Vitals noted. No acute distress. AAOx3, mildly diaphoretic. HEENT: PERRL/EOMI, oropharynx clear, Normocephalic, atraumatic, MMM Cardiac: RRR, no murmur, +S1/S2 Pulmonary: Mild rhonchi at bases, decreased breath sounds diffusely. equal chest expansion Speaking in full sentences. Abdomen: soft, nontender, BS noted, no guarding, no rebound. MSK: ROM intact, no joint swelling noted Extremities: no BLE edema, nontender calf, no cyanosis or clubbing Neuro: A&Ox3, moves all extremities, no focal deficits Psych: Appropriate mood and behavior Internal Medicine: Result - Labs CBC & Chem 7: 07/08/17 05:03 07/08/17 05:03 Labs: Short CBC 07/08/17 Range/Units 05:03 WBC 13.5 H (4.3-11.1) K/mcL Hgb 11.2 L (11.5-15.4) g/dL Hct 34.4 L (35.3-44.9) % Plt Count 233 (140-400) K/mcL Neutrophils # 11.1 H (1.6-8.9) K/mcL BMP 07/08/17 05:03 Sodium 136 Potassium 4.0 Chloride 103 Carbon Dioxide 25 BUN 7 Creatinine 0.66 Glucose 212 H Calcium 8.9 Liver Function 07/08/17 Range/Units 05:03 Total Bilirubin 0.9 (0.3-1.0) mg/dL AST 17 (13-39) Units/L ALT 13 (7-52) Units/L Alkaline Phosphatase 73 (34-104) Units/L Albumin 3.5 (3.5-5.7) g/dL - Impressions Impressions Echocardiogram 07/08/17 17:27 Impressions: LVEF 60%. Normal left ventricular diastolic function. Normal right ventricular structure and function. Mild tricuspid regurgitation. Mild pulmonary hypertension. Left Ventricular Wall Motion: Rest Echo Findings All wall segments showed normal motion. Findings: Study Quality * Technically adequate exam. ECG Findings * Normal sinus rhythm. Left Ventricle * LVEF 60%. * Normal LV chamber size, wall thickness and function. * Normal left ventricular diastolic function. Right Ventricle * Normal right ventricular structure and function. Left Atrium * Normal left atrial size. Right Atrium * Normal right atrial size. Mitral Valve * Normal mitral valve structure. * No mitral stenosis. * Trace mitral regurgitation. Aortic Valve * No aortic regurgitation. * Aortic valve not well visualized. * No aortic stenosis. Tricuspid Valve * Tricuspid valve not well visualized. * Mild tricuspid regurgitation. * Estimated RA pressure is 3 mmHg. * Mild pulmonary hypertension. * Estimated RVSP is 40 mmHg. Pulmonic Valve * Pulmonic valve is not well visualized. * No pulmonic stenosis. * No pulmonic regurgitation. Pulmonary Artery * Pulmonary artery not well visualized. Aorta * Normally sized aortic root. * Ascending aorta not well visualized. Pericardium * There is no pericardial effusion present. Interatrial Septum * No evidence of PFO by color Doppler. IVC * Normal IVC dimensions and inspiratory collapse. Consult Discharge Plan - Plan Referrals: Mily Arzate, ALEX [Primary Care Provider] - 07/14/17 11:00 am <Ricardo Tamez - Last Filed: 07/08/17 17:29> Date of Encounter: 07/08/17 - Assessment and plan (1) Pneumonia Current Visit: Yes Status: Suspected Qualifiers: Pneumonia type: due to Pneumococcus Laterality: left Lung location: lower lobe of lung Qualified Code(s): J13 - Pneumonia due to Streptococcus pneumoniae (2) Chest pain Current Visit: Yes Status: Acute Qualifiers: Chest pain type: chest pain on breathing Qualified Code(s): R07.1 - Chest pain on breathing; R07.81 - Pleurodynia (3) Sepsis Current Visit: Yes Status: Resolved Qualifiers: Sepsis type: sepsis due to unspecified organism Qualified Code(s): A41.9 - Sepsis, unspecified organism (4) Diabetes Current Visit: Yes Status: Chronic Qualifiers: Diabetes mellitus type: type 2 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 senior care use Diabetes mellitus complication status: with hyperglycemia Qualified Code(s): E11.65 - Type 2 diabetes mellitus with hyperglycemia (5) DVT prophylaxis Current Visit: Yes Status: Acute (6) CAP (community acquired pneumonia) Current Visit: Yes Status: Acute Qualifiers: Laterality: left Lung location: unspecified part of lung Qualified Code(s ): J18.9 - Pneumonia, unspecified organism (7) SOB (shortness of breath) Current Visit: Yes Status: Acute (8) Nausea & vomiting Current Visit: Yes Status: Resolved Qualifiers: Vomiting type: cyclical vomiting Vomiting Intractability: non-intractable Qualified Code(s): G43.A0 - Cyclical vomiting, not intractable (9) HLD (hyperlipidemia) Current Visit: Yes Status: Chronic Qualifiers: Hyperlipidemia type: mixed hyperlipidemia Qualified Code(s): E78.2 - Mixed hyperlipidemia (10) Hyponatremia Current Visit: Yes Status: Resolved - Time Spent With Patient Total time spent is greater than 50% in coordination of care (as documented) at patient's floor/unit and/or counseling patient: - Constitutional Vitals: Temp Pulse Resp BP Pulse Ox 98.2 F 100 18 132/83 90 07/08/17 15:27 07/08/17 15:27 07/08/17 16:02 07/08/17 15:27 07/08/17 16:02 Internal Medicine: Result - Labs CBC & Chem 7: 07/08/17 05:03 07/08/17 05:03 Labs: Short CBC 07/08/17 Range/Units 05:03 WBC 13.5 H (4.3-11.1) K/mcL Hgb 11.2 L (11.5-15.4) g/dL Hct 34.4 L (35.3-44.9) % Plt Count 233 (140-400) K/mcL Neutrophils # 11.1 H (1.6-8.9) K/mcL BMP 07/08/17 05:03 Sodium 136 Potassium 4.0 Chloride 103 Carbon Dioxide 25 BUN 7 Creatinine 0.66 Glucose 212 H Calcium 8.9 Liver Function 07/08/17 Range/Units 05:03 Total Bilirubin 0.9 (0.3-1.0) mg/dL AST 17 (13-39) Units/L ALT 13 (7-52) Units/L Alkaline Phosphatase 73 (34-104) Units/L Albumin 3.5 (3.5-5.7) g/dL - Impressions Impressions Chest X-Ray 07/08/17 14:38 IMPRESSION: 1. Left base airspace consolidation, associated with moderate left pleural effusion. If patient has clinical symptoms of infection, this may represent pneumonia. 2. Small right pleural effusion with right base atelectasis. 3. Mild to moderate enlargement of the cardiac silhouette. D/ / Vishnu Vazquez MD / Vishnu Vazquez MD Interpreting Provider: Vishnu Vazquez MD Echocardiogram 07/08/17 17:27 Impressions: LVEF 60%. Normal left ventricular diastolic function. Normal right ventricular structure and function. Mild tricuspid regurgitation. Mild pulmonary hypertension. Left Ventricular Wall Motion: Rest Echo Findings All wall segments showed normal motion. Findings: Study Quality * Technically adequate exam. ECG Findings * Normal sinus rhythm. Left Ventricle * LVEF 60%. * Normal LV chamber size, wall thickness and function. * Normal left ventricular diastolic function. Right Ventricle * Normal right ventricular structure and function. Left Atrium * Normal left atrial size. Right Atrium * Normal right atrial size. Mitral Valve * Normal mitral valve structure. * No mitral stenosis. * Trace mitral regurgitation. Aortic Valve * No aortic regurgitation. * Aortic valve not well visualized. * No aortic stenosis. Tricuspid Valve * Tricuspid valve not well visualized. * Mild tricuspid regurgitation. * Estimated RA pressure is 3 mmHg. * Mild pulmonary hypertension. * Estimated RVSP is 40 mmHg. Pulmonic Valve * Pulmonic valve is not well visualized. * No pulmonic stenosis. * No pulmonic regurgitation. Pulmonary Artery * Pulmonary artery not well visualized. Aorta * Normally sized aortic root. * Ascending aorta not well visualized. Pericardium * There is no pericardial effusion present. Interatrial Septum * No evidence of PFO by color Doppler. IVC * Normal IVC dimensions and inspiratory collapse. - Attending Attestation I examined this patient and my medical decision-making was reviewed with the Resident Physician on 07/08/17. I agree with the documented findings, disposition and treatment plan as described except to the extent set forth below. Ms Charles is currently admitted with acute hypoxic resp failure due to pneumonia. She remains moderate to high risk due to potential for worsening clinical and respiratory status. Ms Charles is having worsening hypoxia. No fever documented. Cough present. Pain about the same. Dyspneic at rest and movement. Exam alert Mod distress at rest. Mucus membranes dry Heart distant. Lungs diminished on L. Scant wheeze Abd soft I/P 1. Acute hypoxic resp failure 2. PNA Will recheck CXR and start steroids. May need further workup tomorrow if no better. Further diagnoses and plan as above.
[2017-07-08] MEDS: predniSONE 20 MG TABLET PO SCH (14:42)
[2017-07-08] MEDS: Azithromycin 500 MG in D5% in Water 250 ML IVPB SCH (17:10)
[2017-07-08] MEDS ORDERED: Furosemide 20 MG/2 ML VIAL IVP ONE (17:29)
[2017-07-09] MEDS: Ipratropium/Albuterol Neb 3 ML IH SCH ×4 (03:52→22:35)
[2017-07-09 04:45] LABS: Basophils % 0.2 %; Eosinophils % 0.1 %; Hematocrit 33.6 % (35.3-44.9); Hemoglobin 11.2 g/dL (11.5-15.4); Immature Granulocytes % 0.5 % (0-4); Lymphocytes # 1.4 K/mcL (0.6-4.6); Mean Corpuscular HGB Conc 33.3 g/dL (31.6-35.5); Mean Corpuscular Hemoglobin 27.8 pg (28.0-33.3); Mean Corpuscular Volume 83.4 fL (83.0-100.0); Mean Platelet Volume 10.4 fL (9.4-12.4); Monocytes # 1.3 K/mcL (0.0-1.3); Neutrophils # 11.2 K/mcL (1.6-8.9); Platelet Count 296 K/mcL (140-400); Red Blood Count 4.03 M/mcL (3.82-4.97); Red Cell Distribution Width 13.3 % (11.5-14.5); Segmented Neutrophils % 80.2 %
[2017-07-09 05:15] LABS: Alanine Aminotransferase 12 Units/L (7-52); Albumin 3.8 g/dL (3.5-5.7); Albumin/Globulin Ratio 1.2 (1.1-2.2); Alkaline Phosphatase 77 Units/L (34-104); Aspartate Amino Transferase 8 Units/L (13-39); BUN/Creatinine Ratio 13 (6-26); Bilirubin,Total 0.7 mg/dL (0.3-1.0); Blood Urea Nitrogen 9 mg/dL (6-20); Calcium 9.2 mg/dL (8.6-10.3); Carbon Dioxide 28 mEq/L (23-29); Chloride 99 mEq/L (98-107); Globulin 3.2 g/dL (2.4-3.5); Glucose 239 mg/dL (70-105); Osmolality,Calculated 288 (280-300); Potassium 3.7 mEq/L (3.5-5.1); Sodium 136 mEq/L (136-145); eGFR For African Americans > 60 (> 60); eGFR For Non-African Americans > 60 (> 60)
[2017-07-09] MEDS: *HR* Enoxaparin 40 MG/0.4 ML SYRINGE SQ SCH (05:45)
[2017-07-09] MEDS: Insulin LISPRO 300 UNITS/3 ML VIAL SQ SCH ×4 (09:32→22:33)
[2017-07-09] MEDS: Levofloxacin 750 MG/150 ML 750 MG/150 ML BAG IVPB SCH (09:32)
[2017-07-09] MEDS: predniSONE 20 MG TABLET PO SCH (09:34)
--- NOTE | 2017-07-09 09:35 | Pulmonology Consult Note ---
Date of Encounter: 07/09/17 Time of Encounter: 09:15 Assessment and Plan (1) Acute respiratory failure with hypoxia Current Visit: Yes Status: Acute Patient is having worsening pneumonia now developing a parapneumonic effusion to continue O2 supplementation. (2) Pneumonia Current Visit: Yes Status: Suspected Worsening consolidation has some endobronchial secretions but no mucus plug initially she had a lingular consolidation now progressed to left lower lobe consolidation as a former smoker some initial hemoptysis will do a airway exam and with BAL . NPO after Midnight for Bronchoscopy . Qualifiers: Pneumonia type: due to Pneumococcus Laterality: left Lung location: lower lobe of lung Qualified Code(s): J13 - Pneumonia due to Streptococcus pneumoniae (3) Pleural effusion associated with pulmonary infection Current Visit: Yes Status: Acute Repeat CT imaging shows possible complicated Parapneumonic effusion spoke with Dr Girard most likely she is going to get Pig tail insertion History of Present Illness Consult date: 07/09/17 Requesting physician: Ricardo Tamez Reason for consult: dyspnea, cough, chest pain Chief complaint: Cough and Chest Pain History of present illness: 47 year old female with past medical history significant for DM,HLD comes with symptoms of cough , chest pain and shortness of breadth had some fever and chills had some on and off cough and sputum production in the previous months initially part of the illness she had some hemoptysis after that sputum was anneliese brown in color she had CTA initially negative for PA had some Lingular consolidation she has improving suddenly she developed shortness of breadth some diaphoresis , repeat CXR showed some increased opacity concerning for worsening pleural effusion . Pulmonary was consulted for possible thoracentesis.Patient denies any abdominal symptoms or any other neuro symptoms. Past Med Surg Social Fam HX - Past Medical History Medical history: diabetes, hyperlipidemia Psychiatric history: no psych history - Past Surgical History Surgical History: hysterectomy (Total) - Social History Smoking Status: Former smoker Packs per day: 2 PPD - Reports quitting 16 years ago Smokeless Tobacco Status: No Alcohol use: none Drug use: none - Family History Mother Race: Family Member Ethnicity: Non- Living Status: Still Living Hx Family Cardiac Disorders: Yes (HTN, HLD) Hx Family Endocrine Disorder: Yes (DM) Father Race: Family Member Ethnicity: Non- Living Status: Still Living Hx Family Cardiac Disorders: Yes (HTN, ) Hx Family Cancer: Yes (Polycythemia vera) Hx Family Neurologic Disorders: Yes (Dementia) Brother Race: Family Member Ethnicity: Non- Living Status: Still Living Hx Family Medical Disorders: No Sister Race: Family Member Ethnicity: Non- Living Status: Still Living Hx Family Medical Disorders: No Medications and Allergies Atorvastatin Calcium [Lipitor] 20 mg PO DAILY 01/23/17 [History] Cinnamon Bark [Cinnamon] 500 mg PO DAILY 01/23/17 [History] Flaxseed Oil [[place]-3 Flaxseed Oil] 1,000 mg PO DAILY 01/23/17 [History] [place]-3S/Dha/Epa/Fish Oil [Fish Oil [place]-3 Softgel] 1 tab PO DAILY 01/23/17 [ History] 3 Allergy/AdvReac Type Severity Reaction Status Date / Time Penicillins Allergy Hives Verified 02/16/17 13:31 aspirin AdvReac Vomiting Verified 02/16/17 13:31 All Systems: The remainder of the systems were reviewed and are negative Physical Examination Vital Signs: Vital Signs, Last 4 Hours Temp Pulse Resp BP Pulse Ox 07/09/17 06:32 98.1 F 87 16 127/85 92 Auscultation: left: diminished breath sounds Results - Laboratory Findings CBC and BMP: 07/09/17 04:16 07/09/17 04:16 Abnormal lab findings: Abnormal lab results WBC 14.0 K/mcL (4.3-11.1) H 07/09/17 04:16 Hgb 11.2 g/dL (11.5-15.4) L 07/09/17 04:16 Hct 33.6 % (35.3-44.9) L 07/09/17 04:16 MCH 27.8 pg (28.0-33.3) L 07/09/17 04:16 Neutrophils # 11.2 K/mcL (1.6-8.9) H 07/09/17 04:16 Glucose 239 mg/dL (70-105) H 07/09/17 04:16 POC Glucose 306 mg/dL (70-99) H 07/08/17 20:33 Hemoglobin A1c 8.6 % (-5.6) H 07/07/17 00:36 AST 8 Units/L (13-39) L 07/09/17 04:16 B-Natriuretic Peptide 111 pg/mL (Less than 100) H 07/06/17 12:39 Entero/Rhino (PCR) DETECTED (Not Detect) A 07/06/17 18:18 - Microbiology Findings Microbiology Findings: Microbiology, Last 48 Hours 07/06/17 19:00 Sputum Culture - Final Sputum 07/06/17 15:24 Blood Culture - Preliminary Peripheral Venipuncture No growth. 07/06/17 15:24 Blood Culture - Preliminary Peripheral Venipuncture No growth. 07/07/17 12:36 Legionella Antigen - Final Urine,Clean Catch Streptococcus pneumoniae Antigen (M - Final - Clinical Findings Intake & Output: Intake & Output 07/08/17 07/09/17 07/09/17 23:59 07:59 15:59 Intake Total 1450 / 1450 500 / 500 Output Total 3600 / 3600 1100 / 1100 Balance -2150 / -2150 -600 / -600 Weight 96.343 kg Consult Discharge Plan - Plan Referrals: Mily Arzate, C[facility] SPECIALIST [Primary Care Provider] - 07/14/17 11:00 am
[2017-07-09 10:20] LABS: Lactate Dehydrogenase 144 Units/L (140-271)
--- NOTE | 2017-07-09 11:10 | Internal Med Progress Note ---
<Dejuan Fuentes - Last Filed: 07/09/17 15:03> Date of Encounter: 07/09/17 Time of Encounter: 11:08 - Assessment and plan (1) Sepsis Current Visit: Yes Status: Resolved Assessment and plan: - Patient was septic on presentation which has resolved - On admission, vital significant for tachycardia 105, respiratory rate 24, temperature 101.6, WBC of 19.7. lactic acid 1.6. Likely source of pneumonia - Received to 1 L normal saline boluses, started on Levaquin in emergency room which was changed to ceftriaxone and azithromycin on admission - No longer meeting SIRS criteria, however white count still elevated at 14, however steroids were initiated yesterday - Blood and sputum cultures negative - Chest x-ray and CTA showed no evidence of pulmonary embolism but did show a lingular consolidation possibly representing pneumonia - PCR positive for rhinovirus - Currently tolerating 2 L of oxygen at 92% - Repeat x-rays on 07/08 and 07/09 showing pleural effusion on the left side moderate Plan - Continue day #4 of antibiotics: Changed ceftriaxone and azithromycin to Levaquin day #2 - CTA shows a possible postobstructive pattern for her pneumonia and would likely benefit from a repeat scan after pneumonia has resolved - She was congratulated on smoking cessation - We will attempt to wean oxygen supplementation as tolerated - Thoracentesis with 0 fluid removal. Pulmonology ordering repeat CT scan and plan for broncopsopy tomorrow, NPO midnight. - Consider adding doxycycline for MRSA coverage. 07/09: Chest x-rays obtained yesterday afternoon revealed a possible parapneumonic effusion which she is likely contributing to her increased shortness of breath. We have consulted pulmonology for their recommendations. We will also plan for interventional radiology to perform thoracentesis with fluid evaluation pending. We also increased the spectrum of her antibiotics from ceftriaxone and azithromycin to Levaquin yesterday. She does seem clinically improved. We will continue current course and monitor closely. Qualifiers: Sepsis type: sepsis due to unspecified organism Qualified Code(s): A41.9 - Sepsis, unspecified organism (2) Chest pain Current Visit: Yes Status: Acute Assessment and plan: - Acute chest pain which is pleuritic in nature. No complaints of pain today. - Likely secondary to pneumonia and parapneumonic effusion as demonstrated on CT and chest x-rays as above - Pulmonary embolism was ruled out with CTA -Likely Secondary to pneumonia and coughing - Troponin was trended and negative 3 - Denies any cardiac history - Echo on 07/08/17 unremarkable. Plan - Symptomatic and supportive care with pain medication Qualifiers: Chest pain type: chest pain on breathing Qualified Code(s): R07.1 - Chest pain on breathing; R07.81 - Pleurodynia (3) Diabetes Current Visit: Yes Status: Chronic Assessment and plan: - History of diet-controlled diabetes mellitus - Hemoglobin A1c 8.6%, previously diet controlled in 6s. - Blood sugar continues to be elevated in 200s - Patient is notably refusing insulin coverage as she does not take any medications at home. - Likely elevated in the setting of infection and steroid administration - Advise follow up with PCP after discharge. Qualifiers: Diabetes mellitus type: type 2 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 longterm use Diabetes mellitus complication status: with hyperglycemia Qualified Code(s): E11.65 - Type 2 diabetes mellitus with hyperglycemia (4) CAP (community acquired pneumonia) Current Visit: Yes Status: Acute Assessment and plan: - As above for sepsis - Continue antibiotics, DuoNeb nebs, supplemental oxygen, Tessalon Perles Qualifiers: Laterality: left Lung location: unspecified part of lung Qualified Code(s ): J18.9 - Pneumonia, unspecified organism (5) SOB (shortness of breath) Current Visit: Yes Status: Acute Assessment and plan: As above for pneumonia and sepsis (6) Nausea & vomiting Current Visit: Yes Status: Resolved Assessment and plan: Resolved Phenergan 12.5 mg IVP every 6 hours when necessary for nausea vomiting. Qualifiers: Vomiting type: cyclical vomiting Vomiting Intractability: non-intractable Qualified Code(s): G43.A0 - Cyclical vomiting, not intractable (7) HLD (hyperlipidemia) Current Visit: Yes Status: Chronic Assessment and plan: - Hx of chronic HLD. Lipid panel in a.m. labs. - Lipid profile unremarkable in laboratory today - Continue home medications Qualifiers: Hyperlipidemia type: mixed hyperlipidemia Qualified Code(s): E78.2 - Mixed hyperlipidemia (8) Hyponatremia Current Visit: Yes Status: Resolved Assessment and plan: Resolved, currently 136 Acute hyponatremia w/sodium of 133 on admission. Pt. receiving IV 0.9 NS per sepsis criteria. Will monitor sodium level in f/u labs. (9) Pneumonia Current Visit: Yes Status: Suspected Assessment and plan: - As above for sepsis. Community acquired. Pt reports improvement and is clinically improved. Further management as above Qualifiers: Pneumonia type: due to Pneumococcus Laterality: left Lung location: lower lobe of lung Qualified Code(s): J13 - Pneumonia due to Streptococcus pneumoniae (10) DVT prophylaxis Current Visit: Yes Status: Acute Assessment and plan: Lovenox 40 mg SQ 0600 daily for DVT prophylaxis. Monitor pt. for signs of bleeding. (11) Pleural effusion associated with pulmonary infection Current Visit: Yes Status: Acute Assessment and plan: - Pleural effusion as demonstrated on chest x-rays on 07/08 and 07/09 - These are associated with consolidation seen on CT scan on admission and also positive rhinovirus on Restoril infection panel - Pulmonology has been consult as above and recommends proceeding with thoracentesis this afternoon. - Thoracentesis 07/09 unsuccessful for fluid removal. Plan for broncoscopy tomorrow with Pulm. - CT chest was performed this afternoon which shows worsening of infiltrate. Discussed with pulmonology and will increase spectrum of antibiotics and plan for chest tube placement by IR. Plan - Pleural fluid analysis pending laboratory collection - Continue supplemental oxygen as needed - Further management as above for pneumonia and sepsis - Start ertapanem, levaquin, vancomycin triple therapy. - Time Spent With Patient Total time spent is greater than 50% in coordination of care (as documented) at patient's floor/unit and/or counseling patient: 25 - 35 minutes - Subjective Interval history: Patient was seen and examined at bedside this morning. States she is still experiencing shortness of breath particularly with exertion. Cough is mildly improved but still producing dark sputum. Denies any further symptoms of fevers , chills, her chest pain has resolved. She states overall she does feel improved from yesterday. - Constitutional Vitals: Temp Pulse Resp BP Pulse Ox 98.9 F 88 18 147/94 91 07/09/17 10:50 07/09/17 10:50 07/09/17 10:59 07/09/17 10:50 07/09/17 10:59 General appearance: Present: cooperative, A&O X 3, pleasant, no acute distress, obese, answers questions appropriately Exam: Gen.: Vitals noted. No acute distress. AAOx3 HEENT: PERRL/EOMI, oropharynx clear, Normocephalic, atraumatic, MMM Cardiac: RRR, no murmur, +S1/S2 Pulmonary: Markedly decreased breath sounds on left side extending from the bases to mid lung, equal chest expansion Abdomen: soft, nontender, BS noted, no guarding MSK: ROM intact, no joint swelling noted Extremities: no BLE edema, nontender calf, no cyanosis or clubbing Neuro: A&Ox3, moves all extremities, no focal deficits Psych: Appropriate mood and behavior Internal Medicine: Result - Labs CBC & Chem 7: 07/09/17 04:16 07/09/17 04:16 Labs: Short CBC 07/09/17 Range/Units 04:16 WBC 14.0 H (4.3-11.1) K/mcL Hgb 11.2 L (11.5-15.4) g/dL Hct 33.6 L (35.3-44.9) % Plt Count 296 (140-400) K/mcL Neutrophils # 11.2 H (1.6-8.9) K/mcL BMP 07/09/17 04:16 Sodium 136 Potassium 3.7 Chloride 99 Carbon Dioxide 28 BUN 9 Creatinine 0.67 Glucose 239 H Calcium 9.2 Liver Function 07/09/17 Range/Units 04:16 Total Bilirubin 0.7 (0.3-1.0) mg/dL AST 8 L (13-39) Units/L ALT 12 (7-52) Units/L Alkaline Phosphatase 77 (34-104) Units/L Albumin 3.8 (3.5-5.7) g/dL - Impressions Impressions Chest X-Ray 07/08/17 14:38 IMPRESSION: 1. Left base airspace consolidation, associated with moderate left pleural effusion. If patient has clinical symptoms of infection, this may represent pneumonia. 2. Small right pleural effusion with right base atelectasis. 3. Mild to moderate enlargement of the cardiac silhouette. D/ / Vishnu Vazquez MD / Vishnu Vazquez MD Interpreting Provider: Vishnu Vazquez MD Chest X-Ray 07/09/17 07:00 IMPRESSION: Stable bilateral effusions which are moderate on the left and small on the right, with bibasilar atelectasis and/or consolidation. D/ / Ignacio Henriquez MD / Ignacio Henriquez MD Interpreting Provider: Ignacio Henriquez MD Consult Discharge Plan - Plan Referrals: Mily Arzate [employer] SUPERVISOR [Primary Care Provider] - 07/14/17 11:00 am <Ricardo Tamez - Last Filed: 07/09/17 15:32> Date of Encounter: 07/09/17 - Assessment and plan (1) Acute respiratory failure with hypoxia Current Visit: Yes Status: Acute (2) Pneumonia Current Visit: Yes Status: Suspected Qualifiers: Pneumonia type: due to Pneumococcus Laterality: left Lung location: lower lobe of lung Qualified Code(s): J13 - Pneumonia due to Streptococcus pneumoniae (3) Pleural effusion associated with pulmonary infection Current Visit: Yes Status: Acute (4) Chest pain Current Visit: Yes Status: Resolved (5) Sepsis Current Visit: Yes Status: Resolved Qualifiers: Sepsis type: sepsis due to unspecified organism Qualified Code(s): A41.9 - Sepsis, unspecified organism (6) Diabetes Current Visit: Yes Status: Chronic Qualifiers: Diabetes mellitus type: type 2 Diabetes mellitus longterm insulin use: without longterm use Diabetes mellitus complication status: with hyperglycemia Qualified Code(s): E11.65 - Type 2 diabetes mellitus with hyperglycemia (7) DVT prophylaxis Current Visit: Yes Status: Acute (8) CAP (community acquired pneumonia) Current Visit: Yes Status: Acute Qualifiers: Laterality: left Lung location: unspecified part of lung Qualified Code(s ): J18.9 - Pneumonia, unspecified organism (9) SOB (shortness of breath) Current Visit: Yes Status: Acute (10) Nausea & vomiting Current Visit: Yes Status: Resolved Qualifiers: Vomiting type: cyclical vomiting Vomiting Intractability: non-intractable Qualified Code(s): G43.A0 - Cyclical vomiting, not intractable (11) HLD (hyperlipidemia) Current Visit: Yes Status: Chronic Qualifiers: Hyperlipidemia type: mixed hyperlipidemia Qualified Code(s): E78.2 - Mixed hyperlipidemia (12) Hyponatremia Current Visit: Yes Status: Resolved - Time Spent With Patient Total time spent is greater than 50% in coordination of care (as documented) at patient's floor/unit and/or counseling patient: - Constitutional Vitals: Temp Pulse Resp BP Pulse Ox 98.9 F 92 20 166/91 95 07/09/17 10:50 07/09/17 15:09 07/09/17 15:09 07/09/17 15:09 07/09/17 15:09 Internal Medicine: Result - Labs CBC & Chem 7: 07/09/17 04:16 07/09/17 04:16 Labs: Short CBC 07/09/17 Range/Units 04:16 WBC 14.0 H (4.3-11.1) K/mcL Hgb 11.2 L (11.5-15.4) g/dL Hct 33.6 L (35.3-44.9) % Plt Count 296 (140-400) K/mcL Neutrophils # 11.2 H (1.6-8.9) K/mcL BMP 07/09/17 04:16 Sodium 136 Potassium 3.7 Chloride 99 Carbon Dioxide 28 BUN 9 Creatinine 0.67 Glucose 239 H Calcium 9.2 Liver Function 07/09/17 Range/Units 04:16 Total Bilirubin 0.7 (0.3-1.0) mg/dL AST 8 L (13-39) Units/L ALT 12 (7-52) Units/L Alkaline Phosphatase 77 (34-104) Units/L Albumin 3.8 (3.5-5.7) g/dL - Impressions Impressions Chest Ultrasound 07/09/17 00:00 IMPRESSION: No significant left pleural effusion to safely perform thoracentesis D/ / Zia Mendenhall MD / Zia Mendenhall MD Interpreting Provider: Zia Mendenhall MD Chest X-Ray 07/09/17 07:00 IMPRESSION: Stable bilateral effusions which are moderate on the left and small on the right, with bibasilar atelectasis and/or consolidation. D/ / Ignacio Henriquez MD / Ignacio Henriquez MD Interpreting Provider: Ignacio Henriquez MD Chest CT 07/09/17 12:26 IMPRESSION: 1. Worsening area of consolidation involving the left upper and left lower lobes concerning for worsening pneumonia. Additional increased density in the right lower lobe as well as 8 mm nodular density in the right upper lobe may reflect additional sites of pneumonia. Follow-up imaging after definitive treatment and resolution of symptoms (4-6 weeks) is recommended to reassess. 2. Right paratracheal lymph nodes are likely reactive. Attention on follow-up imaging is recommended. D/ / Dejuan Ceballos / Dejuan Ceballos Interpreting Provider: Dejuan Ceballos - Attending Attestation I examined this patient and my medical decision-making was reviewed with the Resident Physician on 07/09/17. I agree with the documented findings, disposition and treatment plan as described except to the extent set forth below. Ms Charles is currently admitted for acute hypoxic resp failure due to pneumonia. She remains moderate to high risk due to potential for worsening clinical and respiratory status. Ms Charles is breathing a little better today. No fever. Diuresed a lot last night. Less cough today. Less pain. Exam alert Moderate resp distress Mucus membranes dry Heart reg Diminished breath sounds on L with egophony. Abd soft I/P 1. Pneumonia - worsening on CXR with effusion. Pulm consult today. To have chest tube placed. Bronch tomorrow. 2. Sepsis resolved. Further diagnoses and plan as above.
[2017-07-09] MEDS: Ibuprofen 400 MG TABLET PO PRN ×2 (11:42→18:27)
[2017-07-09] MEDS ORDERED: Isovue-370 500 ML INFUS..BTL IV ONE (12:26)
[2017-07-09] MEDS: Ertapenem 1,000 MG in 0.9 % Sodium Chloride Mini Bag 100 ML IVPB SCH (16:19)
[2017-07-09 16:39] LABS: Total Protein,Pleural Fluid 4.2 g/dL (No Ref Range)
[2017-07-09 17:33] LABS: Appearance of Pleural Fl Bloody (Clear)
[2017-07-09 17:34] LABS: RBC,Pleural Fluid 0.095 M/mcL
[2017-07-09] MEDS ORDERED: Doxycycline 100 MG in 0.9 % Sodium Chloride Mini Bag 100 ML IVPB SCH (18:00)
[2017-07-09] MEDS: *HR* HYDROcodone/Acet 5/325 mg TABLET PO PRN (22:38)
[2017-07-10] MEDS: Ipratropium/Albuterol Neb 3 ML IH SCH ×4 (03:26→21:45)
[2017-07-10 04:53] LABS: Basophils # 0.1 K/mcL (0.0-0.2); Basophils % 0.5 %; Eosinophils % 0.3 %; Hematocrit 35.8 % (35.3-44.9); Hemoglobin 11.9 g/dL (11.5-15.4); Immature Granulocytes % 0.8 % (0-4); Lymphocytes # 1.5 K/mcL (0.6-4.6); Lymphocytes % 13.4 %; Mean Corpuscular HGB Conc 33.2 g/dL (31.6-35.5); Mean Corpuscular Hemoglobin 27.5 pg (28.0-33.3); Mean Corpuscular Volume 82.7 fL (83.0-100.0); Mean Platelet Volume 10.3 fL (9.4-12.4); Monocytes # 1.1 K/mcL (0.0-1.3); Monocytes % 9.8 %; Neutrophils # 8.2 K/mcL (1.6-8.9); Platelet Count 368 K/mcL (140-400); Red Blood Count 4.33 M/mcL (3.82-4.97); Red Cell Distribution Width 13.5 % (11.5-14.5); Segmented Neutrophils % 75.2 %
[2017-07-10 05:04] LABS: Alanine Aminotransferase 13 Units/L (7-52); Albumin 3.7 g/dL (3.5-5.7); Alkaline Phosphatase 77 Units/L (34-104); Aspartate Amino Transferase 8 Units/L (13-39); BUN/Creatinine Ratio 18 (6-26); Bilirubin,Total 0.5 mg/dL (0.3-1.0); Blood Urea Nitrogen 12 mg/dL (6-20); Calcium 9.3 mg/dL (8.6-10.3); Carbon Dioxide 27 mEq/L (23-29); Chloride 100 mEq/L (98-107); Globulin 3.7 g/dL (2.4-3.5); Glucose 201 mg/dL (70-105); Osmolality,Calculated 291 (280-300); Potassium 3.8 mEq/L (3.5-5.1); Sodium 138 mEq/L (136-145); Total Protein 7.4 g/dL (6.4-8.9); eGFR For African Americans > 60 (> 60); eGFR For Non-African Americans > 60 (> 60)
[2017-07-10] MEDS: *HR* Enoxaparin 40 MG/0.4 ML SYRINGE SQ SCH (06:07)
[2017-07-10] MEDS: Insulin LISPRO 300 UNITS/3 ML VIAL SQ SCH ×4 (06:51→21:15)
--- NOTE | 2017-07-10 08:50 | Pulmonology Progress Note ---
Date of Encounter: 07/10/17 Time of Encounter: 08:30 Assessment and Plan (1) Acute respiratory failure with hypoxia Current Visit: Yes Status: Acute Secondary to left upper and lower lobe pneumonia to continue O2 supplementation . (2) Pneumonia Current Visit: Yes Status: Suspected Patient has left upper lobe pneumonia and left lower pneumonia will do bronchoscopy airway examination with BAL . To do Incentive spirometry and flutter valve . Qualifiers: Pneumonia type: due to Pneumococcus Laterality: left Lung location: lower lobe of lung Qualified Code(s): J13 - Pneumonia due to Streptococcus pneumoniae (3) Pleural effusion associated with pulmonary infection Current Visit: Yes Status: Acute Patient had pig tail insertion yesterday , pleural fluid gram stain is negative there is no pus so fits the criteria of complicated para pneumonic effusion . Will repeat the imaging over the weekend Subjective Principal diagnosis: Pneumonia with Parapneumonic effusion Interval history: Patient has some pain over the pig tail , denies any fever or chills , has some cough and sputum production . Objective PUL Vital signs: Last Vital Signs Temp 98.2 F 07/10/17 07:27 Pulse 77 07/10/17 07:27 Resp 15 07/10/17 07:27 BP 151/90 07/10/17 07:27 Pulse Ox 93 07/10/17 07:27 Auscultation: left: diminished breath sounds Results - Laboratory Findings CBC and BMP: 07/10/17 04:02 07/10/17 04:02 Abnormal lab findings: Abnormal lab results MCV 82.7 fL (83.0-100.0) L 07/10/17 04:02 MCH 27.5 pg (28.0-33.3) L 07/10/17 04:02 Glucose 201 mg/dL (70-105) H 07/10/17 04:02 POC Glucose 306 mg/dL (70-99) H 07/08/17 20:33 Hemoglobin A1c 8.6 % (-5.6) H 07/07/17 00:36 AST 8 Units/L (13-39) L 07/10/17 04:02 B-Natriuretic Peptide 111 pg/mL (Less than 100) H 07/06/17 12:39 Globulin 3.7 g/dL (2.4-3.5) H 07/10/17 04:02 Albumin/Globulin Ratio 1.0 (1.1-2.2) L 07/10/17 04:02 Pleural Appearance Bloody (Clear) A 07/09/17 15:08 Pleural RBC 0.095 M/mcL (0.000-0.002) H 07/09/17 15:08 Entero/Rhino (PCR) DETECTED (Not Detect) A 07/06/17 18:18 - Clinical Findings Intake & Output: Intake & Output 07/09/17 07/10/17 07/10/17 23:59 07:59 15:59 Intake Total 550 / 550 550 / 550 Output Total 360 / 360 1435 / 1435 Balance 190 / 190 -885 / -885 Weight 96.7 kg Consult Discharge Plan - Plan Referrals: Mily Arzate, COMPUTER ARCHITECT [Primary Care Provider] - 07/14/17 11:00 am
[2017-07-10] MEDS ORDERED: Ondansetron 4 MG/2 ML VIAL IVP PRN (09:09)
[2017-07-10] MEDS ORDERED: Lidocaine Viscous Oral Soln 15 ML SOLUTION MM ONE (09:20)
[2017-07-10] MEDS ORDERED: *HR* Midazolam HCl 5 MG/5 ML VIAL IVP ONE ×2 (09:23→09:27)
[2017-07-10] MEDS ORDERED: Lidocaine Viscous Oral Soln 15 ML SOLUTION ONE (09:24)
[2017-07-10] MEDS ORDERED: *HR* FentaNYL (PF) 100 MCG/2 ML VIAL ONE (09:24)
[2017-07-10] MEDS ORDERED: *HR* FentaNYL (PF) 100 MCG/2 ML VIAL IVP ONE (09:26)
--- NOTE | 2017-07-10 09:28 | Pre-Sedation Evaluation ---
Pre-sedation evaluation - Pre-sedation checklist Date of procedure: 07/10/17 Recent Vitals: Last Vital Signs Temp 98.5 F 07/10/17 09:22 Pulse 78 07/10/17 09:22 Resp 16 07/10/17 09:22 BP 194/105 07/10/17 09:22 Pulse Ox 94 07/10/17 09:22 H&P (including ROS) documented in medical record: Yes Dietary Status: NPO after Midnight Airway Assessment: Patient can open mouth completely, TMJ function normal If Yes;: Morbid obesity ASA Classification *see protocol: CLASS II-Mild systemic disease Plan of Care: Pt appropriate candidate for procedure/moderate/conscious sedation
[2017-07-10] MEDS ORDERED: Ipratropium/Albuterol Neb 3 ML ONE (09:53)
[2017-07-10] MEDS ORDERED: Ipratropium/Albuterol Neb 3 ML IH ONE (10:06)
[2017-07-10] MEDS: Ertapenem 1,000 MG in 0.9 % Sodium Chloride Mini Bag 100 ML IVPB SCH (11:04)
[2017-07-10] MEDS: Levofloxacin 750 MG/150 ML 750 MG/150 ML BAG IVPB SCH (11:04)
[2017-07-10] MEDS: MORPHINE SUL Oral CONC 10 MG/0.5 ML ORAL.SYG SL PRN (11:05)
--- NOTE | 2017-07-10 11:20 | Internal Med Progress Note ---
<Dejuan Fuentes - Last Filed: 07/10/17 14:46> Date of Encounter: 07/10/17 Time of Encounter: 09:00 - Assessment and plan (1) Pleural effusion associated with pulmonary infection Current Visit: Yes Status: Acute Assessment and plan: - Pleural effusion as demonstrated on chest x-rays on 07/08 and 07/09 - These are associated with consolidation seen on CT scan on admission and also positive rhinovirus on respiratory infection panel - Pulmonology has been consult as above and recommends proceeding with thoracentesis this afternoon. - Thoracentesis 07/09 unsuccessful for fluid removal. Broncoscopy today, BAL obtained and pending. Official report pending. - Chest tube placed 07/09, antibiotics currently meropanem and vanc, discussed with pharmacy Plan - Micro results negative for growth, gram stain, cells. - Exudative effusion based on Light's criteria. - Continue supplemental oxygen as needed - Further management as above for pneumonia and sepsis (2) Sepsis Current Visit: Yes Status: Resolved Assessment and plan: - Patient was septic on presentation which has resolved - On admission, vital significant for tachycardia 105, respiratory rate 24, temperature 101.6, WBC of 19.7. lactic acid 1.6. Likely source of pneumonia - Received to 1 L normal saline boluses, started on Levaquin in emergency room which was changed to ceftriaxone and azithromycin on admission - No longer meeting SIRS criteria, however white count still elevated at 14, however steroids were initiated yesterday - Blood and sputum cultures negative - Chest x-ray and CTA showed no evidence of pulmonary embolism but did show a lingular consolidation possibly representing pneumonia - PCR positive for rhinovirus - Currently tolerating 2 L of oxygen at 92% - Repeat x-rays on 07/08 and 07/09 showing pleural effusion on the left side moderate Plan - Continue day #4 of antibiotics: Changed ceftriaxone and azithromycin to Levaquin day #2 - CTA shows a possible postobstructive pattern for her pneumonia and would likely benefit from a repeat scan after pneumonia has resolved - She was congratulated on smoking cessation - We will attempt to wean oxygen supplementation as tolerated - Thoracentesis with 0 fluid removal. Pulmonology ordering repeat CT scan and plan for broncopsopy tomorrow, NPO midnight. 07/09: Chest x-rays obtained yesterday afternoon revealed a possible parapneumonic effusion which she is likely contributing to her increased shortness of breath. We have consulted pulmonology for their recommendations. We will also plan for interventional radiology to perform thoracentesis with fluid evaluation pending. We also increased the spectrum of her antibiotics from ceftriaxone and azithromycin to Levaquin yesterday. She does seem clinically improved. We will continue current course and monitor closely. 07/10: Patient clinically improving after chest tube placement on 07/09. Broncoscopy planned with Pulmonology this AM. Discussed with pharmacy antibiotic regimen, will increase to meropenem and vancomycin, day #1 (day 5 of total antibiotics). Continues to tolerate 2L O2. WBC continues to downtrend to 10.9 today. Qualifiers: Sepsis type: sepsis due to unspecified organism Qualified Code(s): A41.9 - Sepsis, unspecified organism (3) Chest pain Current Visit: Yes Status: Resolved Assessment and plan: - Acute chest pain which is pleuritic in nature. No complaints of pain today. - Likely secondary to pneumonia and parapneumonic effusion as demonstrated on CT and chest x-rays as above - Pulmonary embolism was ruled out with CTA -Likely Secondary to pneumonia and coughing - Troponin was trended and negative 3 - Denies any cardiac history - Echo on 07/08/17 unremarkable. Plan - Symptomatic and supportive care with pain medication - Management of complicated parapneumonic effusion as above. Qualifiers: Chest pain type: chest pain on breathing Qualified Code(s): R07.1 - Chest pain on breathing; R07.81 - Pleurodynia (4) Diabetes Current Visit: Yes Status: Chronic Assessment and plan: - History of diet-controlled diabetes mellitus - Hemoglobin A1c 8.6%, previously diet controlled in 6s. - Blood sugar continues to be elevated in 200s - Patient is notably refusing insulin coverage as she does not take any medications at home. - Likely elevated in the setting of infection and steroid administration - Advise follow up with PCP after discharge. 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 Monitor pt. for signs of bleeding. (6) CAP (community acquired pneumonia) Current Visit: Yes Status: Acute Assessment and plan: - As above for sepsis - Continue antibiotics, DuoNeb nebs, supplemental oxygen, Tessalon Perles Qualifiers: Laterality: left Lung location: unspecified part of lung Qualified Code(s ): J18.9 - Pneumonia, unspecified organism (7) SOB (shortness of breath) Current Visit: Yes Status: Acute Assessment and plan: As above for pneumonia and sepsis (8) Nausea & vomiting Current Visit: Yes Status: Resolved Assessment and plan: Resolved Phenergan 12.5 mg IVP every 6 hours when necessary for nausea vomiting. Qualifiers: Vomiting type: cyclical vomiting Vomiting Intractability: non-intractable Qualified Code(s): G43.A0 - Cyclical vomiting, not intractable (9) HLD (hyperlipidemia) Current Visit: Yes Status: Chronic Assessment and plan: - Hx of chronic HLD. Lipid panel in a.m. labs. - Lipid profile unremarkable in laboratory - Continue home medications Qualifiers: Hyperlipidemia type: mixed hyperlipidemia Qualified Code(s): E78.2 - Mixed hyperlipidemia (10) Hyponatremia Current Visit: Yes Status: Resolved Assessment and plan: Resolved, currently 138 Acute hyponatremia w/sodium of 133 on admission. Pt. receiving IV 0.9 NS per sepsis criteria. Will monitor sodium level in f/u labs. (11) Pneumonia Current Visit: Yes Status: Suspected Assessment and plan: - As above for sepsis. Community acquired. Pt reports improvement and is clinically improved. Further management as above Qualifiers: Pneumonia type: due to Pneumococcus Laterality: left Lung location: lower lobe of lung Qualified Code(s): J13 - Pneumonia due to Streptococcus pneumoniae (12) Acute respiratory failure with hypoxia Current Visit: Yes Status: Acute Assessment and plan: As below for sepsis. Currently tolerating 2L O2. No home O2 requirement - Secondary to pneumonia and parapneumonic effusion - Time Spent With Patient Total time spent is greater than 50% in coordination of care (as documented) at patient's floor/unit and/or counseling patient: 25 - 35 minutes - Subjective Interval history: Patient was seen and examined at bedside this morning. She states that overall she is feeling a little bit better but is still experiencing SOB with exertion. Cough has somewhat improved. No fevers, chills, nausea, vomiting. Tolerating chest tube well. Mildly anxious for broncoscopy. - Constitutional Vitals: Temp Pulse Resp BP Pulse Ox 98.6 F 89 16 131/76 94 07/10/17 10:25 07/10/17 10:25 07/10/17 10:25 07/10/17 10:25 07/10/17 10:25 General appearance: Present: cooperative, A&O X 3, pleasant, no acute distress, obese, answers questions appropriately Exam: Gen.: Vitals noted. No acute distress. AAOx3 HEENT: PERRL/EOMI, oropharynx clear, Normocephalic, atraumatic, MMM Cardiac: RRR, no murmur, +S1/S2 Pulmonary: Decreased breath sounds on left, mild improvement, chest tube with bloody fluid draining. equal chest expansion Abdomen: soft, nontender, BS noted, no guarding, no rebound. MSK: ROM intact, no joint swelling noted Extremities: no BLE edema, nontender calf, no cyanosis or clubbing Neuro: A&Ox3, moves all extremities, no focal deficits Psych: Appropriate mood and behavior Internal Medicine: Result - Labs CBC & Chem 7: 07/10/17 04:02 07/10/17 04:02 Labs: Short CBC 07/10/17 Range/Units 04:02 WBC 10.9 (4.3-11.1) K/mcL Hgb 11.9 (11.5-15.4) g/dL Hct 35.8 (35.3-44.9) % Plt Count 368 (140-400) K/mcL Neutrophils # 8.2 (1.6-8.9) K/mcL BMP 07/10/17 04:02 Sodium 138 Potassium 3.8 Chloride 100 Carbon Dioxide 27 BUN 12 Creatinine 0.65 Glucose 201 H Calcium 9.3 Liver Function 07/10/17 Range/Units 04:02 Total Bilirubin 0.5 (0.3-1.0) mg/dL AST 8 L (13-39) Units/L ALT 13 (7-52) Units/L Alkaline Phosphatase 77 (34-104) Units/L Albumin 3.7 (3.5-5.7) g/dL Consult Discharge Plan - Plan Referrals: Mily Arzate, SMOG TECHNICIAN [Primary Care Provider] - 07/14/17 11:00 am <Ricardo Tamez - Last Filed: 07/10/17 16:45> Date of Encounter: 07/10/17 - Assessment and plan (1) Acute respiratory failure with hypoxia Current Visit: Yes Status: Acute (2) Pneumonia Current Visit: Yes Status: Suspected Qualifiers: Pneumonia type: due to Pneumococcus Laterality: left Lung location: lower lobe of lung Qualified Code(s): J13 - Pneumonia due to Streptococcus pneumoniae (3) Pleural effusion associated with pulmonary infection Current Visit: Yes Status: Acute (4) Chest pain Current Visit: Yes Status: Resolved (5) Sepsis Current Visit: Yes Status: Resolved Qualifiers: Sepsis type: sepsis due to unspecified organism Qualified Code(s): A41.9 - Sepsis, unspecified organism (6) Diabetes Current Visit: Yes Status: Chronic Qualifiers: Diabetes mellitus type: type 2 Diabetes mellitus care home insulin 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 Diabetes mellitus complication status: with hyperglycemia Qualified Code(s): E11.65 - Type 2 diabetes mellitus with hyperglycemia (7) DVT prophylaxis Current Visit: Yes Status: Acute (8) CAP (community acquired pneumonia) Current Visit: Yes Status: Acute Qualifiers: Laterality: left Lung location: unspecified part of lung Qualified Code(s ): J18.9 - Pneumonia, unspecified organism (9) SOB (shortness of breath) Current Visit: Yes Status: Acute (10) Nausea & vomiting Current Visit: Yes Status: Resolved Qualifiers: Vomiting type: cyclical vomiting Vomiting Intractability: non-intractable Qualified Code(s): G43.A0 - Cyclical vomiting, not intractable (11) HLD (hyperlipidemia) Current Visit: Yes Status: Chronic Qualifiers: Hyperlipidemia type: mixed hyperlipidemia Qualified Code(s): E78.2 - Mixed hyperlipidemia (12) Hyponatremia Current Visit: Yes Status: Resolved - Time Spent With Patient Total time spent is greater than 50% in coordination of care (as documented) at patient's floor/unit and/or counseling patient: - Constitutional Vitals: Temp Pulse Resp BP Pulse Ox 98.4 F 97 16 138/84 93 07/10/17 12:10 07/10/17 12:10 07/10/17 12:10 07/10/17 12:10 07/10/17 12:10 Internal Medicine: Result - Labs CBC & Chem 7: 07/10/17 04:02 07/10/17 04:02 Labs: Short CBC 07/10/17 Range/Units 04:02 WBC 10.9 (4.3-11.1) K/mcL Hgb 11.9 (11.5-15.4) g/dL Hct 35.8 (35.3-44.9) % Plt Count 368 (140-400) K/mcL Neutrophils # 8.2 (1.6-8.9) K/mcL BMP 07/10/17 04:02 Sodium 138 Potassium 3.8 Chloride 100 Carbon Dioxide 27 BUN 12 Creatinine 0.65 Glucose 201 H Calcium 9.3 Liver Function 07/10/17 Range/Units 04:02 Total Bilirubin 0.5 (0.3-1.0) mg/dL AST 8 L (13-39) Units/L ALT 13 (7-52) Units/L Alkaline Phosphatase 77 (34-104) Units/L Albumin 3.7 (3.5-5.7) g/dL - Attending Attestation I examined this patient and my medical decision-making was reviewed with the Resident Physician on 07/10/17. I agree with the documented findings, disposition and treatment plan as described except to the extent set forth below. Ms Charles is currently admitted for acute resp failure and pneumonia. She has CT in place for effusion. She remains moderate to high risk due to potential for worsening clinical status. Ms Charles is going to bronchoscopy. No fever last night. Has had some pain. No GI issues. Exam Alert Comfortable Mucus membranes dry Heart reg Decreased breath sounds I/P 1. Pneumonia 2. Effusion Bronch today Further diagnoses and plan as above.
[2017-07-10] MEDS: predniSONE 20 MG TABLET PO SCH (12:33)
[2017-07-10] MEDS: Meropenem 1,000 MG in Water for inj. (sterile) 20 ML 10 ML IVP SCH ×2 (14:20→21:14)
[2017-07-10 14:36] LABS: Source of Body Fluid BAL LUL
[2017-07-10 15:14] LABS: Source of Body Fluid BAL LLL
[2017-07-10 16:10] LABS: Appearance of Body Fluid Cloudy (Clear); Volume of Body Fluid 28 mL
[2017-07-10 16:13] LABS: Appearance of Body Fluid Cloudy (Clear); Volume of Body Fluid 36 mL
[2017-07-11] MEDS: Ipratropium/Albuterol Neb 3 ML IH SCH ×4 (04:06→21:44)
[2017-07-11 04:21] LABS: Basophils # 0.1 K/mcL (0.0-0.2); Basophils % 0.5 %; Eosinophils # 0.1 K/mcL (0.0-0.6); Eosinophils % 0.5 %; Hematocrit 33.8 % (35.3-44.9); Hemoglobin 11.1 g/dL (11.5-15.4); Immature Granulocytes % 1.1 % (0-4); Immature Platelets 3.2 % (1.1-6.1); Lymphocytes # 1.5 K/mcL (0.6-4.6); Lymphocytes % 13.4 %; Mean Corpuscular HGB Conc 32.8 g/dL (31.6-35.5); Mean Corpuscular Hemoglobin 27.3 pg (28.0-33.3); Mean Corpuscular Volume 83.3 fL (83.0-100.0); Mean Platelet Volume 9.6 fL (9.4-12.4); Monocytes # 1.2 K/mcL (0.0-1.3); Platelet Count 400 K/mcL (140-400); Red Blood Count 4.06 M/mcL (3.82-4.97); Red Cell Distribution Width 13.7 % (11.5-14.5); Segmented Neutrophils % 73.5 %
[2017-07-11 04:43] LABS: Alanine Aminotransferase 12 Units/L (7-52); Albumin 3.6 g/dL (3.5-5.7); Albumin/Globulin Ratio 1.1 (1.1-2.2); Alkaline Phosphatase 62 Units/L (34-104); Aspartate Amino Transferase 10 Units/L (13-39); BUN/Creatinine Ratio 16 (6-26); Bilirubin,Total 0.6 mg/dL (0.3-1.0); Blood Urea Nitrogen 11 mg/dL (6-20); Calcium 8.8 mg/dL (8.6-10.3); Carbon Dioxide 27 mEq/L (23-29); Chloride 100 mEq/L (98-107); Globulin 3.2 g/dL (2.4-3.5); Glucose 230 mg/dL (70-105); Osmolality,Calculated 287 (280-300); Potassium 3.9 mEq/L (3.5-5.1); Sodium 135 mEq/L (136-145); Total Protein 6.8 g/dL (6.4-8.9); eGFR For African Americans > 60 (> 60); eGFR For Non-African Americans > 60 (> 60)
[2017-07-11] MEDS: *HR* Enoxaparin 40 MG/0.4 ML SYRINGE SQ SCH (05:05)
[2017-07-11] MEDS: Meropenem 1,000 MG in Water for inj. (sterile) 20 ML 10 ML IVP SCH ×3 (05:05→21:05)
[2017-07-11] MEDS: Insulin LISPRO 300 UNITS/3 ML VIAL SQ SCH ×4 (08:24→21:06)
[2017-07-11] MEDS: predniSONE 20 MG TABLET PO SCH (08:24)
--- NOTE | 2017-07-11 08:44 | Internal Med Progress Note ---
<Dejuan Fuentes - Last Filed: 07/11/17 12:17> Date of Encounter: 07/11/17 Time of Encounter: 08:42 - Assessment and plan (1) Pleural effusion associated with pulmonary infection Current Visit: Yes Status: Acute Assessment and plan: - Pleural effusion as demonstrated on chest x-rays on 07/08 and 07/09 - These are associated with consolidation seen on CT scan on admission and also positive rhinovirus on respiratory infection panel - Pulmonology has been following. Will inject alteplase in pleural cavity today to attempt to break up complicated parapneumonic effusion. - Chest tube with 500 mL total draining. Has slowed greatly in output. - Thoracentesis 07/09 unsuccessful for fluid removal. Broncoscopy 07/10 showing inflammation but no obstruction, some mucus plugging - Chest tube placed 07/09, antibiotics currently meropanem and vanc, discussed with pharmacy Plan - Micro results negative for growth, gram stain, cells. Preliminary negative. - Exudative effusion based on Light's criteria. Likely secondary to infection. - Continue supplemental oxygen as needed - Further management as above for pneumonia and sepsis (2) Sepsis Current Visit: Yes Status: Resolved Assessment and plan: - Patient was septic on presentation which has resolved - On admission, vital significant for tachycardia 105, respiratory rate 24, temperature 101.6, WBC of 19.7. lactic acid 1.6. Likely source of pneumonia - Received to 1 L normal saline boluses, started on Levaquin in emergency room which was changed to ceftriaxone and azithromycin on admission - No longer meeting SIRS criteria, however white count still elevated at 14, however steroids were initiated yesterday - Blood and sputum cultures negative - Chest x-ray and CTA showed no evidence of pulmonary embolism but did show a lingular consolidation possibly representing pneumonia - PCR positive for rhinovirus - Currently tolerating 2 L of oxygen at 92% - Repeat x-rays on 07/08 and 07/09 showing pleural effusion on the left side moderate Plan - Continue day #4 of antibiotics: Changed ceftriaxone and azithromycin to Levaquin day #2 - CTA shows a possible postobstructive pattern for her pneumonia and would likely benefit from a repeat scan after pneumonia has resolved - She was congratulated on smoking cessation - We will attempt to wean oxygen supplementation as tolerated - Thoracentesis with 0 fluid removal. Pulmonology ordering repeat CT scan and plan for broncopsopy tomorrow, NPO midnight. 07/09: Chest x-rays obtained yesterday afternoon revealed a possible parapneumonic effusion which she is likely contributing to her increased shortness of breath. We have consulted pulmonology for their recommendations. We will also plan for interventional radiology to perform thoracentesis with fluid evaluation pending. We also increased the spectrum of her antibiotics from ceftriaxone and azithromycin to Levaquin yesterday. She does seem clinically improved. We will continue current course and monitor closely. 07/10: Patient clinically improving after chest tube placement on 07/09. Broncoscopy planned with Pulmonology this AM. Discussed with pharmacy antibiotic regimen, will increase to meropenem and vancomycin, day #1 (day 5 of total antibiotics). Continues to tolerate 2L O2. WBC continues to downtrend to 10.9 today. 07/11: Continues to improve clinically. Chest tube with minimal output, will add 10 mg of alteplase to pleural cavity to break up loculations per pulmonology. Will restart suction 4 hours following. Continue meropenem and vanc day #2. Continue O2. Will repeat CT tomorrow and encourage IS and acapella with respiratory therapy. WBC stable at 10. Qualifiers: Sepsis type: sepsis due to unspecified organism Qualified Code(s): A41.9 - Sepsis, unspecified organism (3) Chest pain Current Visit: Yes Status: Resolved Assessment and plan: - Acute chest pain which is pleuritic in nature. No complaints of pain today. - Likely secondary to pneumonia and parapneumonic effusion as demonstrated on CT and chest x-rays as above - Pulmonary embolism was ruled out with CTA -Likely Secondary to pneumonia and coughing - Troponin was trended and negative 3 - Denies any cardiac history - Echo on 07/08/17 unremarkable. Plan - Symptomatic and supportive care with pain medication - Management of complicated parapneumonic effusion as above. - Given fentanyl x 2 doses for pleuritic pain following alteplase, likely secondary to irritation. Qualifiers: Chest pain type: chest pain on breathing Qualified Code(s): R07.1 - Chest pain on breathing; R07.81 - Pleurodynia (4) Diabetes Current Visit: Yes Status: Chronic Assessment and plan: - History of diet-controlled diabetes mellitus - Hemoglobin A1c 8.6%, previously diet controlled in 6s. - Blood sugar continues to be elevated in 200s - Patient is notably refusing insulin coverage as she does not take any medications at home. - Likely elevated in the setting of infection and steroid administration - Advise follow up with PCP after discharge. Qualifiers: Diabetes mellitus type: type 2 Diabetes mellitus nursing home insulin use: without nursing home use Diabetes mellitus complication status: with hyperglycemia Qualified Code(s): E11.65 - Type 2 diabetes mellitus with hyperglycemia (5) CAP (community acquired pneumonia) Current Visit: Yes Status: Acute Assessment and plan: - As above for sepsis - Continue antibiotics, DuoNeb nebs, supplemental oxygen, Tessalon Perles Qualifiers: Laterality: left Lung location: unspecified part of lung Qualified Code(s ): J18.9 - Pneumonia, unspecified organism (6) SOB (shortness of breath) Current Visit: Yes Status: Acute Assessment and plan: As above for pneumonia and sepsis (7) Nausea & vomiting Current Visit: Yes Status: Resolved Assessment and plan: Resolved Phenergan 12.5 mg IVP every 6 hours when necessary for nausea vomiting. Qualifiers: Vomiting type: cyclical vomiting Vomiting Intractability: non-intractable Qualified Code(s): G43.A0 - Cyclical vomiting, not intractable (8) HLD (hyperlipidemia) Current Visit: Yes Status: Chronic Assessment and plan: - Hx of chronic HLD. Lipid panel in a.m. labs. - Lipid profile unremarkable in laboratory - Continue home medications Qualifiers: Hyperlipidemia type: mixed hyperlipidemia Qualified Code(s): E78.2 - Mixed hyperlipidemia (9) Hyponatremia Current Visit: Yes Status: Resolved Assessment and plan: Resolved, currently 138 Acute hyponatremia w/sodium of 133 on admission. Pt. receiving IV 0.9 NS per sepsis criteria. Will monitor sodium level in f/u labs. (10) Pneumonia Current Visit: Yes Status: Suspected Assessment and plan: - As above for sepsis. Community acquired. Pt reports improvement and is clinically improved. Further management as above Qualifiers: Pneumonia type: due to Pneumococcus Laterality: left Lung location: lower lobe of lung Qualified Code(s): J13 - Pneumonia due to Streptococcus pneumoniae (11) DVT prophylaxis Current Visit: Yes Status: Acute Assessment and plan: Lovenox 40 mg SQ 0600 daily for DVT prophylaxis. Monitor pt. for signs of bleeding. (12) Acute respiratory failure with hypoxia Current Visit: Yes Status: Acute Assessment and plan: As below for sepsis. Currently tolerating 1.5L O2. No home O2 requirement - Secondary to pneumonia and parapneumonic effusion - Time Spent With Patient Total time spent is greater than 50% in coordination of care (as documented) at patient's floor/unit and/or counseling patient: 25 - 35 minutes - Subjective Interval history: Patient was seen and examined at bedside this morning. She states her breathing has improved since yesterday. She still gets SOB when rising from bed but states she does feel markedly improved. - Constitutional Vitals: Temp Pulse Resp BP Pulse Ox 99.1 F 66 16 164/83 95 07/11/17 08:17 07/11/17 08:17 07/11/17 08:17 07/11/17 08:17 07/11/17 08:17 General appearance: Present: cooperative, A&O X 3, pleasant, no acute distress, obese, answers questions appropriately Exam: Gen.: Vitals noted. No acute distress. AAOx3 HEENT: PERRL/EOMI, oropharynx clear, Normocephalic, atraumatic, MMM Cardiac: RRR, no murmur, +S1/S2 Pulmonary: Decreased breath sounds on left, mild improvement, chest tube with bloody fluid draining. equal chest expansion Abdomen: soft, nontender, BS noted, no guarding, no rebound. MSK: ROM intact, no joint swelling noted Extremities: no BLE edema, nontender calf, no cyanosis or clubbing Neuro: A&Ox3, moves all extremities, no focal deficits Psych: Appropriate mood and behavior Internal Medicine: Result - Labs CBC & Chem 7: 07/11/17 04:13 07/11/17 04:13 Labs: Short CBC 07/11/17 Range/Units 04:13 WBC 10.9 (4.3-11.1) K/mcL Hgb 11.1 L (11.5-15.4) g/dL Hct 33.8 L (35.3-44.9) % Plt Count 400 (140-400) K/mcL Neutrophils # 8.0 (1.6-8.9) K/mcL BMP 07/11/17 04:13 Sodium 135 L Potassium 3.9 Chloride 100 Carbon Dioxide 27 BUN 11 Creatinine 0.68 Glucose 230 H Calcium 8.8 Liver Function 07/11/17 Range/Units 04:13 Total Bilirubin 0.6 (0.3-1.0) mg/dL AST 10 L (13-39) Units/L ALT 12 (7-52) Units/L Alkaline Phosphatase 62 (34-104) Units/L Albumin 3.6 (3.5-5.7) g/dL Consult Discharge Plan - Plan Referrals: Mily Arzate, CHILDCARE DIRECTOR [Primary Care Provider] - 07/14/17 11:00 am <Ricardo Tamez - Last Filed: 07/11/17 14:35> Date of Encounter: 07/11/17 - Assessment and plan (1) Acute respiratory failure with hypoxia Current Visit: Yes Status: Acute (2) Pleural effusion associated with pulmonary infection Current Visit: Yes Status: Acute (3) Pneumonia Current Visit: Yes Status: Acute Assessment and plan: Possibly viral. Qualifiers: Pneumonia type: due to unspecified organism Laterality: left Lung location: lower lobe of lung Qualified Code(s): J18.1 - Lobar pneumonia, unspecified organism (4) Chest pain Current Visit: Yes Status: Resolved (5) Sepsis Current Visit: Yes Status: Resolved Qualifiers: Sepsis type: sepsis due to unspecified organism Qualified Code(s): A41.9 - Sepsis, unspecified organism (6) Diabetes Current Visit: Yes Status: Chronic Qualifiers: Diabetes mellitus type: type 2 Diabetes mellitus technician terminal and repeater insulin use: without nursing home use Diabetes mellitus complication status: with hyperglycemia Qualified Code(s): E11.65 - Type 2 diabetes mellitus with hyperglycemia (7) HLD (hyperlipidemia) Current Visit: Yes Status: Chronic Qualifiers: Hyperlipidemia type: mixed hyperlipidemia Qualified Code(s): E78.2 - Mixed hyperlipidemia (8) CAP (community acquired pneumonia) Current Visit: Yes Status: Acute Qualifiers: Laterality: left Lung location: unspecified part of lung Qualified Code(s ): J18.9 - Pneumonia, unspecified organism (9) SOB (shortness of breath) Current Visit: Yes Status: Acute (10) Nausea & vomiting Current Visit: Yes Status: Resolved Qualifiers: Vomiting type: cyclical vomiting Vomiting Intractability: non-intractable Qualified Code(s): G43.A0 - Cyclical vomiting, not intractable (11) Hyponatremia Current Visit: Yes Status: Resolved (12) DVT prophylaxis Current Visit: Yes Status: Acute - Time Spent With Patient Total time spent is greater than 50% in coordination of care (as documented) at patient's floor/unit and/or counseling patient: - Constitutional Vitals: Temp Pulse Resp BP Pulse Ox 98.9 F 84 20 174/93 93 07/11/17 12:11 07/11/17 12:11 07/11/17 12:11 07/11/17 12:11 07/11/17 12:11 Internal Medicine: Result - Labs CBC & Chem 7: 07/11/17 04:13 07/11/17 04:13 Labs: Short CBC 07/11/17 Range/Units 04:13 WBC 10.9 (4.3-11.1) K/mcL Hgb 11.1 L (11.5-15.4) g/dL Hct 33.8 L (35.3-44.9) % Plt Count 400 (140-400) K/mcL Neutrophils # 8.0 (1.6-8.9) K/mcL BMP 07/11/17 04:13 Sodium 135 L Potassium 3.9 Chloride 100 Carbon Dioxide 27 BUN 11 Creatinine 0.68 Glucose 230 H Calcium 8.8 Liver Function 07/11/17 Range/Units 04:13 Total Bilirubin 0.6 (0.3-1.0) mg/dL AST 10 L (13-39) Units/L ALT 12 (7-52) Units/L Alkaline Phosphatase 62 (34-104) Units/L Albumin 3.6 (3.5-5.7) g/dL - Impressions Impressions Chest X-Ray 07/11/17 08:37 IMPRESSION: Interval placement of a left-sided chest tube with decreased volume of fluid in the left pleural space and some improvement in the aeration of the left lung base. Persistent small right pleural effusion with right basilar atelectasis. D/ / 07/11/2017 09:10:14 Rico Hoffmann MD / Inez Busby Interpreting Provider: Rico Hoffmann MD - Attending Attestation I examined this patient and my medical decision-making was reviewed with the Resident Physician on 07/11/17. I agree with the documented findings, disposition and treatment plan as described except to the extent set forth below. Ms Charles is currently admitted for pneumonia complicated with parapneumonic effusion. She remains moderate to high risk due to potential for worsening clinical and respiratory status. Ms Charles was feeling somewhat better today. No fever. Less cough. Still with effusion on CXR though improved. Exam alert Standing and comfortable. Mucus membranes dry Heart reg Decreased breath sounds on R Abs soft I/P 1. Pneumonia with complicated parapneumonic effusion - to get alteplase today. Further diagnoses and plan as above.
--- NOTE | 2017-07-11 09:50 | Pulmonology Progress Note ---
Date of Encounter: 07/11/17 Time of Encounter: 09:30 Assessment and Plan (1) Acute respiratory failure with hypoxia Current Visit: Yes Status: Acute Secondary to left upper and lower lobe pneumonia to continue O2 supplementation . (2) Pneumonia Current Visit: Yes Status: Suspected Patient has left upper lobe pneumonia and left lower pneumonia the bronchoscopic airway examination showed lot of mucosal inflammation with erythema both with left upper and lower lobe airways was easily bleeding touch , BAL is not growing anything , no endobronchial lesion was found To do Incentive spirometry and flutter valve . Qualifiers: Qualified Code(s): J13 - Pneumonia due to Streptococcus pneumoniae (3) Pleural effusion associated with pulmonary infection Current Visit: Yes Status: Acute Patient had pig tail insertion yesterday , pleural fluid gram stain is negative there is no pus so fits the criteria of complicated para pneumonic effusion . Over past 24 hrs there was only 35 ml drainage Repeat CXR showed interval decrease in the size of pleural effusion there was some residual pleural effusion will try intrapleural dose of t-PA 10 mg once and see that will drain the remaining fluid. Will repeat imaging tomorrow . Subjective Principal diagnosis: Pneumonia with Parapneumonic effusion Interval history: Patient has some pain over the pig tail , denies any fever or chills , has some cough and sputum production . No hemoptysis over all she is getting better . Objective PUL Vital signs: Last Vital Signs Temp 99.1 F 07/11/17 08:17 Pulse 66 07/11/17 08:17 Resp 16 07/11/17 08:17 BP 164/83 07/11/17 08:17 Pulse Ox 95 07/11/17 08:31 Auscultation: left: diminished breath sounds Results - Laboratory Findings CBC and BMP: 07/11/17 04:13 07/11/17 04:13 Abnormal lab findings: Abnormal lab results Hgb 11.1 g/dL (11.5-15.4) L 07/11/17 04:13 Hct 33.8 % (35.3-44.9) L 07/11/17 04:13 MCH 27.3 pg (28.0-33.3) L 07/11/17 04:13 Sodium 135 mEq/L (136-145) L 07/11/17 04:13 Glucose 230 mg/dL (70-105) H 07/11/17 04:13 POC Glucose 151 mg/dL (70-99) H 07/11/17 08:12 Hemoglobin A1c 8.6 % (-5.6) H 07/07/17 00:36 AST 10 Units/L (13-39) L 07/11/17 04:13 B-Natriuretic Peptide 111 pg/mL (Less than 100) H 07/06/17 12:39 Fluid Appearance Cloudy (Clear) A 07/10/17 10:20 Pleural Appearance Bloody (Clear) A 07/09/17 15:08 Pleural RBC 0.095 M/mcL (0.000-0.002) H 07/09/17 15:08 Vancomycin Trough 12 mcg/mL (5-10) H 07/11/17 04:13 Entero/Rhino (PCR) DETECTED (Not Detect) A 07/06/17 18:18 - Microbiology Findings Microbiology Findings: Microbiology, Last 48 Hours 07/10/17 10:10 Gram Stain - Final Left Upper Lobe Lung 07/10/17 10:10 Gram Stain - Final Left Lower Lobe Lung 07/10/17 14:25 Legionella Antigen - Final Urine,Clean Catch - Clinical Findings Intake & Output: Intake & Output 07/10/17 07/11/17 07/11/17 23:59 07:59 15:59 Intake Total 760 / 760 500 / 500 0 / 0 Output Total 1750 / 1750 710 / 710 Balance -990 / -990 -210 / -210 0 / 0 Weight 95.708 kg Consult Discharge Plan - Plan Referrals: Mily Arzate, FRUIT PICKER MACHINE OPERATOR [Primary Care Provider] - 07/14/17 11:00 am
[2017-07-11] MEDS ORDERED: ALTEPLASE 100 MG/100 ML IVP ONE (10:30)
[2017-07-11] MEDS ORDERED: SODIUM CHLORIDE 0.9% IVPB ONE (10:45)
[2017-07-11] MEDS ORDERED: Alteplase 100 MG/100 mL Vial Pharmacy Waste ONE (10:45)
[2017-07-11] MEDS ORDERED: ALTEPLASE IVPB ONE ×2 (10:45)
[2017-07-11] MEDS ORDERED: SODIUM CHLORIDE IVPB ONE (10:45)
[2017-07-11] MEDS: *HR* FentaNYL (PF) 100 MCG/2 ML VIAL IVP SCH ×2 (11:34→12:21)
[2017-07-11] MEDS: *HR* HYDROcodone/Acet 5/325 mg TABLET PO PRN ×2 (11:37→17:57)
[2017-07-11] MEDS ORDERED: *HR* FentaNYL (PF) 100 MCG/2 ML VIAL IVP ONE ×2 (12:12→12:30)
[2017-07-11] MEDS: MORPHINE SUL Oral CONC 10 MG/0.5 ML ORAL.SYG SL PRN ×2 (15:51→21:58)
[2017-07-11] MEDS: Ibuprofen 400 MG TABLET PO PRN (19:19)
[2017-07-12 03:08] LABS: Hematocrit 37.2 % (35.3-44.9); Hemoglobin 11.8 g/dL (11.5-15.4); Mean Corpuscular HGB Conc 31.7 g/dL (31.6-35.5); Mean Corpuscular Hemoglobin 26.7 pg (28.0-33.3); Mean Corpuscular Volume 84.2 fL (83.0-100.0); Mean Platelet Volume 9.5 fL (9.4-12.4); Platelet Count 385 K/mcL (140-400); Red Blood Count 4.42 M/mcL (3.82-4.97); Red Cell Distribution Width 13.9 % (11.5-14.5)
[2017-07-12 03:27] LABS: BUN/Creatinine Ratio 19 (6-26); Blood Urea Nitrogen 13 mg/dL (6-20); Calcium 8.6 mg/dL (8.6-10.3); Carbon Dioxide 28 mEq/L (23-29); Chloride 99 mEq/L (98-107); Glucose 181 mg/dL (70-105); Osmolality,Calculated 283 (280-300); Potassium 3.8 mEq/L (3.5-5.1); Sodium 134 mEq/L (136-145); eGFR For African Americans > 60 (> 60); eGFR For Non-African Americans > 60 (> 60)
[2017-07-12] MEDS: Ipratropium/Albuterol Neb 3 ML IH SCH ×4 (04:04→22:05)
[2017-07-12] MEDS: *HR* Enoxaparin 40 MG/0.4 ML SYRINGE SQ SCH (06:08)
[2017-07-12] MEDS: Meropenem 1,000 MG in Water for inj. (sterile) 20 ML 10 ML IVP SCH ×3 (06:08→22:25)
--- NOTE | 2017-07-12 08:12 | Pulmonology Progress Note ---
Date of Encounter: 07/12/17 Time of Encounter: 08:00 Assessment and Plan (1) Acute respiratory failure with hypoxia Current Visit: Yes Status: Acute Secondary to left upper and lower lobe pneumonia with complicated parapneumonic effusion to continue O2 supplementation . (2) Pleural effusion associated with pulmonary infection Current Visit: Yes Status: Acute Patient had pig tail insertion yesterday , pleural fluid gram stain is negative there is no pus so fits the criteria of complicated para pneumonic effusion . Over past 24 hrs there was only 35 ml drainage Repeat CXR showed interval decrease in the size of pleural effusion there was some residual pleural effusion will try intrapleural dose of t-PA 10 mg once and see that will drain the remaining fluid. 5/6 Patient has output of 750 ml over 12 hrs will hold off imaging today will leave the chest tube for one more day if the drainage is less than 75 ml for the next 24 hrs will repeat the imaging will most likely remove the chest tube tomorrow patient agrees with the plan. Since cultures negative since she had good clinical response if the imaging is lot better she will need 2 weeks of Doxycycline 100 mg BID . (3) Pneumonia Current Visit: Yes Status: Acute Patient has left upper lobe pneumonia and left lower pneumonia the bronchoscopic airway examination showed lot of mucosal inflammation with erythema both with left upper and lower lobe airways was easily bleeding touch , BAL is not growing anything , no endobronchial lesion was found To do Incentive spirometry and flutter valve . 5/6 To continue Incentive Spirometry and flutter valve will need 8 week Pulmonary follow up with repeat CT scan in 8 weeks to ensure the resolution of consolidation. Qualifiers: Pneumonia type: due to unspecified organism Laterality: left Lung location: lower lobe of lung Qualified Code(s): J18.1 - Lobar pneumonia, unspecified organism Subjective Principal diagnosis: Pneumonia with Parapneumonic effusion Interval history: Patient has some pain over the pig tail , denies any fever or chills , has some cough and sputum production . No hemoptysis over all she is getting better . 5/6 Patient had intrapleural t-PA yesterday night had a output around 750 ml with sero - sanguineous fluid she had lot of chest pain when i put the t-PA as the pleural fluid was drained her chest pain got lot better. Objective PUL Vital signs: Last Vital Signs Temp 98.4 F 07/12/17 06:51 Pulse 80 07/12/17 06:51 Resp 18 07/12/17 06:51 BP 132/82 07/12/17 06:51 Pulse Ox 95 07/12/17 06:51 Auscultation: left: diminished breath sounds Results - Laboratory Findings CBC and BMP: 07/12/17 02:54 07/12/17 02:54 Abnormal lab findings: Abnormal lab results WBC 13.3 K/mcL (4.3-11.1) H 07/12/17 02:54 MCH 26.7 pg (28.0-33.3) L 07/12/17 02:54 Sodium 134 mEq/L (136-145) L 07/12/17 02:54 Glucose 181 mg/dL (70-105) H 07/12/17 02:54 POC Glucose 258 mg/dL (70-99) H 07/11/17 20:43 Hemoglobin A1c 8.6 % (-5.6) H 07/07/17 00:36 AST 10 Units/L (13-39) L 07/11/17 04:13 B-Natriuretic Peptide 111 pg/mL (Less than 100) H 07/06/17 12:39 Fluid Appearance Cloudy (Clear) A 07/10/17 10:20 Pleural Appearance Bloody (Clear) A 07/09/17 15:08 Pleural RBC 0.095 M/mcL (0.000-0.002) H 07/09/17 15:08 Vancomycin Trough 14 mcg/mL (5-10) H 07/12/17 02:54 Entero/Rhino (PCR) DETECTED (Not Detect) A 07/06/17 18:18 - Microbiology Findings Microbiology Findings: Microbiology, Last 48 Hours 07/10/17 10:10 Acid Fast Stain - Final Left Lower Lobe Lung 07/10/17 10:10 Acid Fast Stain - Final Left Upper Lobe Lung 07/10/17 10:10 Respiratory Culture - Preliminary Left Upper Lobe Lung No growth. 07/10/17 10:10 Respiratory Culture - Preliminary Left Lower Lobe Lung No growth. 07/10/17 10:10 Gram Stain - Final Left Upper Lobe Lung 07/10/17 10:10 Gram Stain - Final Left Lower Lobe Lung 07/10/17 14:25 Legionella Antigen - Final Urine,Clean Catch - Clinical Findings Intake & Output: Intake & Output 07/11/17 07/12/17 07/12/17 23:59 07:59 15:59 Intake Total 710 / 710 1060 / 1060 Output Total 1750 / 1750 980 / 980 Balance -1040 / -1040 80 / 80 Consult Discharge Plan - Plan Referrals: Mily Arzate, CABLEWAY OPERATOR [Primary Care Provider] - 07/14/17 11:00 am
[2017-07-12] MEDS: Insulin LISPRO 300 UNITS/3 ML VIAL SQ SCH ×4 (08:29→22:24)
[2017-07-12] MEDS: predniSONE 20 MG TABLET PO SCH (08:30)
--- NOTE | 2017-07-12 09:35 | Internal Med Progress Note ---
<Dejuan Fuentes - Last Filed: 07/12/17 10:10> Date of Encounter: 07/12/17 Time of Encounter: 08:30 - Assessment and plan (1) Pleural effusion associated with pulmonary infection Current Visit: Yes Status: Acute Assessment and plan: - Pleural effusion as demonstrated on chest x-rays on 07/08 and 07/09 - These are associated with consolidation seen on CT scan on admission and also positive rhinovirus on respiratory infection panel - Pulmonology has been following. Will inject alteplase in pleural cavity today to attempt to break up complicated parapneumonic effusion. - Chest tube with 2100 mL total draining. Large increase in draining over the last 24 hours however it has slowed. Per pulmonology will consider pulling chest tube tomorrow after an additional 24 hours of suction and repeat CT scan - Chest tube placed 07/09, antibiotics currently meropanem and vanc, discussed with pharmacy Plan - Micro results negative for growth, gram stain, cells. Preliminary negative. - Exudative effusion based on Light's criteria. Likely secondary to infection. - Continue supplemental oxygen as needed - Further management as above for pneumonia and sepsis (2) Sepsis Current Visit: Yes Status: Resolved Assessment and plan: - Patient was septic on presentation which has resolved - On admission, vital significant for tachycardia 105, respiratory rate 24, temperature 101.6, WBC of 19.7. lactic acid 1.6. Likely source of pneumonia - Received to 1 L normal saline boluses, started on Levaquin in emergency room which was changed to ceftriaxone and azithromycin on admission - No longer meeting SIRS criteria - Blood and sputum cultures negative - Chest x-ray and CTA showed no evidence of pulmonary embolism but did show a lingular consolidation possibly representing pneumonia - PCR positive for rhinovirus - Currently tolerating 2 L of oxygen - Repeat x-rays on 07/08 and 07/09 showing pleural effusion on the left side moderate Plan - Continue day #4 of antibiotics: Changed ceftriaxone and azithromycin to Levaquin day #2 - CTA shows a possible postobstructive pattern for her pneumonia and would likely benefit from a repeat scan after pneumonia has resolved - We will attempt to wean oxygen supplementation as tolerated - Thoracentesis with 0 fluid removal. Pulmonology ordering repeat CT scan and plan for broncopsopy tomorrow, NPO midnight. 07/09: Chest x-rays obtained yesterday afternoon revealed a possible parapneumonic effusion which she is likely contributing to her increased shortness of breath. We have consulted pulmonology for their recommendations. We will also plan for interventional radiology to perform thoracentesis with fluid evaluation pending. We also increased the spectrum of her antibiotics from ceftriaxone and azithromycin to Levaquin yesterday. She does seem clinically improved. We will continue current course and monitor closely. 07/10: Patient clinically improving after chest tube placement on 07/09. Broncoscopy planned with Pulmonology this AM. Discussed with pharmacy antibiotic regimen, will increase to meropenem and vancomycin, day #1 (day 5 of total antibiotics). Continues to tolerate 2L O2. WBC continues to downtrend to 10.9 today. 07/11: Continues to improve clinically. Chest tube with minimal output, will add 10 mg of alteplase to pleural cavity to break up loculations per pulmonology. Will restart suction 4 hours following. Continue meropenem and vanc day #2. Continue O2. Will repeat CT tomorrow and encourage IS and acapella with respiratory therapy. WBC stable at 10. 07/12: Continues to improve clinically. Chest tube after TPA administration with close to 2 L of output. Spoke with pulmonology who states he likely continued suction on chest tube today and repeat CT scan tomorrow with possible pulling of chest tube. continue IV antibiotics however cultures and labs remained no growth. Continue meropenem and vancomycin day #3 Qualifiers: Sepsis type: sepsis due to unspecified organism Qualified Code(s): A41.9 - Sepsis, unspecified organism (3) Chest pain Current Visit: Yes Status: Resolved Assessment and plan: - Acute chest pain which is pleuritic in nature. No complaints of pain today. - Likely secondary to pneumonia and parapneumonic effusion as demonstrated on CT and chest x-rays as above - Pulmonary embolism was ruled out with CTA -Likely Secondary to pneumonia and coughing - Troponin was trended and negative 3 - Denies any cardiac history - Echo on 07/08/17 unremarkable. Plan - Symptomatic and supportive care with pain medication - Management of complicated parapneumonic effusion as above. - Given fentanyl x 2 doses for pleuritic pain following alteplase, likely secondary to irritation. 07/11: Resolved, likely secondary to parapneumonic effusion as above. We will continue to monitor Qualifiers: Chest pain type: chest pain on breathing Qualified Code(s): R07.1 - Chest pain on breathing; R07.81 - Pleurodynia (4) Diabetes Current Visit: Yes Status: Chronic Assessment and plan: - History of diet-controlled diabetes mellitus - Hemoglobin A1c 8.6%, previously diet controlled in 6s. - Blood sugar continues to be elevated in 200s - Patient is notably refusing insulin coverage as she does not take any medications at home. - Likely elevated in the setting of infection and steroid administration - Advise follow up with PCP after discharge. 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 operator intermodal yard use Diabetes mellitus complication status: with hyperglycemia Qualified Code(s): E11.65 - Type 2 diabetes mellitus with hyperglycemia (5) CAP (community acquired pneumonia) Current Visit: Yes Status: Acute Assessment and plan: - As above for sepsis - Continue antibiotics, DuoNeb nebs, supplemental oxygen, Tessalon Perles Qualifiers: Laterality: left Lung location: unspecified part of lung Qualified Code(s ): J18.9 - Pneumonia, unspecified organism (6) SOB (shortness of breath) Current Visit: Yes Status: Acute Assessment and plan: As above for pneumonia and sepsis (7) HLD (hyperlipidemia) Current Visit: Yes Status: Chronic Assessment and plan: - Hx of chronic HLD. Lipid panel in a.m. labs. - Lipid profile unremarkable in laboratory - Continue home medications Qualifiers: Hyperlipidemia type: mixed hyperlipidemia Qualified Code(s): E78.2 - Mixed hyperlipidemia (8) DVT prophylaxis Current Visit: Yes Status: Acute Assessment and plan: Lovenox 40 mg SQ 0600 daily for DVT prophylaxis. Monitor pt. for signs of bleeding. (9) Acute respiratory failure with hypoxia Current Visit: Yes Status: Acute Assessment and plan: As below for sepsis. Currently tolerating 2 L O2. No home O2 requirement - Secondary to pneumonia and parapneumonic effusion as below - Time Spent With Patient Total time spent is greater than 50% in coordination of care (as documented) at patient's floor/unit and/or counseling patient: 25 - 35 minutes - Subjective Interval history: Patient was seen and examined at bedside this morning. She states that her breathing is overall very much improved. No new complaints of cough, fevers, chills. Chest pain resolved. - Constitutional Vitals: Temp Pulse Resp BP Pulse Ox 98.4 F 80 18 132/82 95 07/12/17 06:51 07/12/17 06:51 07/12/17 06:51 07/12/17 06:51 07/12/17 06:51 General appearance: Present: cooperative, A&O X 3, pleasant, no acute distress, obese, answers questions appropriately Exam: Gen.: Vitals noted. No acute distress. AAOx3 HEENT: PERRL/EOMI, oropharynx clear, Normocephalic, atraumatic, MMM Cardiac: RRR, no murmur, +S1/S2 Pulmonary: Decreased breath sounds on left base, however it is much improved from yesterday. equal chest expansion Abdomen: soft, nontender, BS noted, no guarding Back: Chest tube in place with bloody output measuring approximately 2100 mL MSK: ROM intact, no joint swelling noted Extremities: no BLE edema, nontender calf, no cyanosis or clubbing Neuro: A&Ox3, moves all extremities, no focal deficits Psych: Appropriate mood and behavior Internal Medicine: Result - Labs CBC & Chem 7: 07/12/17 02:54 07/12/17 02:54 Labs: Short CBC 07/12/17 Range/Units 02:54 WBC 13.3 H (4.3-11.1) K/mcL Hgb 11.8 (11.5-15.4) g/dL Hct 37.2 (35.3-44.9) % Plt Count 385 (140-400) K/mcL BMP 07/12/17 02:54 Sodium 134 L Potassium 3.8 Chloride 99 Carbon Dioxide 28 BUN 13 Creatinine 0.69 Glucose 181 H Calcium 8.6 Consult Discharge Plan - Plan Referrals: Mily Arzate, ALEX [Primary Care Provider] - 07/14/17 11:00 am <Ricardo Tamez - Last Filed: 07/12/17 17:05> Date of Encounter: 07/12/17 - Assessment and plan (1) Acute respiratory failure with hypoxia Current Visit: Yes Status: Acute (2) Pleural effusion associated with pulmonary infection Current Visit: Yes Status: Acute (3) CAP (community acquired pneumonia) Current Visit: Yes Status: Acute Qualifiers: Laterality: left Lung location: unspecified part of lung Qualified Code(s ): J18.9 - Pneumonia, unspecified organism (4) Chest pain Current Visit: Yes Status: Resolved (5) Sepsis Current Visit: Yes Status: Resolved Qualifiers: Sepsis type: sepsis due to unspecified organism Qualified Code(s): A41.9 - Sepsis, unspecified organism (6) Diabetes Current Visit: Yes Status: Chronic 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 operator intermodal yard use Diabetes mellitus complication status: with hyperglycemia Qualified Code(s): E11.65 - Type 2 diabetes mellitus with hyperglycemia (7) SOB (shortness of breath) Current Visit: Yes Status: Acute (8) HLD (hyperlipidemia) Current Visit: Yes Status: Chronic Qualifiers: Hyperlipidemia type: mixed hyperlipidemia Qualified Code(s): E78.2 - Mixed hyperlipidemia (9) DVT prophylaxis Current Visit: Yes Status: Acute - Time Spent With Patient Total time spent is greater than 50% in coordination of care (as documented) at patient's floor/unit and/or counseling patient: - Constitutional Vitals: Temp Pulse Resp BP Pulse Ox 98.1 F 83 20 127/66 94 07/12/17 14:28 07/12/17 14:28 07/12/17 16:22 07/12/17 14:28 07/12/17 16:22 Internal Medicine: Result - Labs CBC & Chem 7: 07/12/17 02:54 07/12/17 02:54 Labs: Short CBC 07/12/17 Range/Units 02:54 WBC 13.3 H (4.3-11.1) K/mcL Hgb 11.8 (11.5-15.4) g/dL Hct 37.2 (35.3-44.9) % Plt Count 385 (140-400) K/mcL BMP 07/12/17 02:54 Sodium 134 L Potassium 3.8 Chloride 99 Carbon Dioxide 28 BUN 13 Creatinine 0.69 Glucose 181 H Calcium 8.6 - Attending Attestation I examined this patient and my medical decision-making was reviewed with the Resident Physician on 07/12/17. I agree with the documented findings, disposition and treatment plan as described except to the extent set forth below. Ms Charles is currently admitted for pneumonia with parapneumonic effusion. She remains moderate to high risk due to potential for worsening clinical and respiratory status. Ms Charles had a lot of pain after alteplase yesterday. No fever. Feels better today. Had good output in chest tube. Less cough and dyspnea. No GI issues. Exam alert comfortable Mucus membranes dry Heart not tachy No wheeze I/P 1. PNA 2. Effusion Further diagnoses and plan as above.
[2017-07-12] MEDS: Ibuprofen 400 MG TABLET PO PRN (12:24)
[2017-07-13] MEDS: Ibuprofen 400 MG TABLET PO PRN (01:03)
[2017-07-13] MEDS: Ipratropium/Albuterol Neb 3 ML IH SCH ×3 (03:20→15:38)
[2017-07-13 04:53] LABS: Basophils # 0.1 K/mcL (0.0-0.2); Basophils % 0.6 %; Eosinophils # 0.4 K/mcL (0.0-0.6); Eosinophils % 3.2 %; Hemoglobin 11.4 g/dL (11.5-15.4); Immature Granulocytes % 2.8 % (0-4); Lymphocytes # 2.4 K/mcL (0.6-4.6); Lymphocytes % 22.3 %; Mean Corpuscular HGB Conc 32.6 g/dL (31.6-35.5); Mean Corpuscular Hemoglobin 27.2 pg (28.0-33.3); Mean Corpuscular Volume 83.5 fL (83.0-100.0); Mean Platelet Volume 9.6 fL (9.4-12.4); Monocytes # 1.1 K/mcL (0.0-1.3); Monocytes % 10.1 %; Neutrophils # 6.6 K/mcL (1.6-8.9); Platelet Count 339 K/mcL (140-400); Red Blood Count 4.19 M/mcL (3.82-4.97); Red Cell Distribution Width 13.6 % (11.5-14.5)
[2017-07-13 05:11] LABS: BUN/Creatinine Ratio 15 (6-26); Blood Urea Nitrogen 10 mg/dL (6-20); Calcium 8.3 mg/dL (8.6-10.3); Carbon Dioxide 30 mEq/L (23-29); Chloride 101 mEq/L (98-107); Glucose 179 mg/dL (70-105); Osmolality,Calculated 292 (280-300); Potassium 3.4 mEq/L (3.5-5.1); Sodium 139 mEq/L (136-145); eGFR For African Americans > 60 (> 60); eGFR For Non-African Americans > 60 (> 60)
[2017-07-13] MEDS: Meropenem 1,000 MG in Water for inj. (sterile) 20 ML 10 ML IVP SCH ×2 (05:42→15:27)
[2017-07-13] MEDS: *HR* Enoxaparin 40 MG/0.4 ML SYRINGE SQ SCH (05:42)
[2017-07-13 06:40] LABS: Influenza A PCR Body Fluid NOT DETECTED; Influenza B PCR Body Fluid NOT DETECTED; RVP Body Fluid Source BAL LUL
[2017-07-13 07:10] VITALS: BP 127/79
[2017-07-13] MEDS: Insulin LISPRO 300 UNITS/3 ML VIAL SQ SCH ×3 (08:33→16:40)
[2017-07-13] MEDS: predniSONE 20 MG TABLET PO SCH (09:52)
--- NOTE | 2017-07-13 09:55 | Pulmonology Progress Note ---
Date of Encounter: 07/13/17 Time of Encounter: 08:00 Assessment and Plan (1) Pleural effusion associated with pulmonary infection Current Visit: Yes Status: Acute Patient clinically feeling better and also improvement on the images and discussed with her about removing chest tube and she agreed. Explained to her risk associated with chest tube removal mainly pneumothorax and subsequently chest tube removed at bedside without immediate complication and chest x-rays ordered. Discussed with patient and also primary team if clinically remained stable can be discharged home on empiric antibiotics then have a follow-up images seen about a month and follow up in the clinic. (2) Pneumonia Current Visit: Yes Status: Acute Qualifiers: Pneumonia type: due to unspecified organism Laterality: left Lung location: lower lobe of lung Qualified Code(s): J18.1 - Lobar pneumonia, unspecified organism Subjective Principal diagnosis: Pneumonia with Parapneumonic effusion Interval history: Patient is feeling better and only minimal drainage from the chest tube Objective PUL Vital signs: Last Vital Signs Temp 98.3 F 07/13/17 07:03 Pulse 83 07/13/17 07:03 Resp 16 07/13/17 07:03 BP 127/79 07/13/17 07:03 Pulse Ox 95 07/13/17 07:03 General appearance: no acute distress Eyes: nonicteric ENT: oropharynx moist Neck: supple Effort: normal Auscultation: bilateral: diminished breath sounds (Chest tube in the left side) Percussion: left: dull, right: not dull Cardiovascular: regular rate and rhythm Gastrointestinal: normoactive bowel sounds, non-distended Extremities: no cyanosis normal mental status, non-focal exam mood appropriate Results - Laboratory Findings CBC and BMP: 07/13/17 04:23 07/13/17 04:23 Abnormal lab findings: Abnormal lab results Hgb 11.4 g/dL (11.5-15.4) L 07/13/17 04:23 Hct 35.0 % (35.3-44.9) L 07/13/17 04:23 MCH 27.2 pg (28.0-33.3) L 07/13/17 04:23 Potassium 3.4 mEq/L (3.5-5.1) L 07/13/17 04:23 Carbon Dioxide 30 mEq/L (23-29) H 07/13/17 04:23 Glucose 179 mg/dL (70-105) H 07/13/17 04:23 POC Glucose 162 mg/dL (70-99) H 07/13/17 07:07 Hemoglobin A1c 8.6 % (-5.6) H 07/07/17 00:36 Calcium 8.3 mg/dL (8.6-10.3) L 07/13/17 04:23 AST 10 Units/L (13-39) L 07/11/17 04:13 B-Natriuretic Peptide 111 pg/mL (Less than 100) H 07/06/17 12:39 Fluid Appearance Cloudy (Clear) A 07/10/17 10:20 Pleural Appearance Bloody (Clear) A 07/09/17 15:08 Pleural RBC 0.095 M/mcL (0.000-0.002) H 07/09/17 15:08 Vancomycin Trough 14 mcg/mL (5-10) H 07/12/17 02:54 Entero/Rhino (PCR) DETECTED (Not Detect) A 07/06/17 18:18 - Microbiology Findings Microbiology Findings: Microbiology, Last 48 Hours 07/10/17 10:10 Respiratory Culture - Final Left Lower Lobe Lung No growth. 07/10/17 10:10 Respiratory Culture - Final Left Upper Lobe Lung No growth. 07/10/17 10:10 Acid Fast Stain - Final Left Lower Lobe Lung 07/10/17 10:10 Acid Fast Stain - Final Left Upper Lobe Lung - Diagnostic Findings CT scan - chest: report reviewed, image reviewed - Clinical Findings Intake & Output: Intake & Output 07/12/17 07/13/17 07/13/17 23:59 07:59 15:59 Intake Total 3160 / 3160 400 / 400 240 / 240 Output Total 1650 / 1650 325 / 325 Balance 1510 / 1510 75 / 75 240 / 240 Weight 220 kg Consult Discharge Plan - Plan Referrals: Mily Arzate, CDL [employer] [Primary Care Provider] - 07/14/17 11:00 am
[2017-07-13 10:28] LABS: Mycoplasma pneumoniae IgG 0.57 U/L (<=0.09)
[2017-07-13 10:44] LABS: RSV PCR Body Fluid NOT DETECTED
--- NOTE | 2017-07-13 16:46 | Discharge Summary ---
- NOTES TO OUTPATIENT PROVIDER Notes to Outpatient Provider: Pt admitted with L side pneumonia. Developed complicated parapneumonic effusion requiring chest tube. Still has some effusion and pneumonia and is requiring oxygen at discharge. To follow with pulmonary in a month and needs CT first. Orders not resulted at time of discharge: Pending orders 07/10/17 10:10 AFB Culture, Respiratory [TB] Routine AFB Culture, Respiratory [TB] Routine AFB Smear [TB] Routine AFB Smear [TB] Routine Fungal Culture [MYC] Routine Fungal Culture [MYC] Routine 07/10/17 10:18 Cytology [PTH] Routine 07/14/17 04:00 BMP [Basic Metabolic Panel] AM 0400 Complete Blood Count w/o Diff [HEME] AM 0400 Date of Encounter: 07/13/17 Time of Encounter: 16:43 - Discharge Diagnosis (1) Acute respiratory failure with hypoxia Priority: Primary Status: Acute (2) Pleural effusion associated with pulmonary infection Priority: Secondary Status: Acute (3) CAP (community acquired pneumonia) Priority: Primary Status: Acute Qualifiers: Laterality: left Lung location: unspecified part of lung Qualified Code(s ): J18.9 - Pneumonia, unspecified organism (4) Chest pain Priority: Secondary Status: Resolved Qualifiers: Chest pain type: chest pain on breathing Qualified Code(s): R07.1 - Chest pain on breathing; R07.81 - Pleurodynia (5) Sepsis Priority: Secondary Status: Resolved Qualifiers: Sepsis type: sepsis due to unspecified organism Qualified Code(s): A41.9 - Sepsis, unspecified organism (6) Diabetes Priority: Secondary Status: Chronic Qualifiers: Diabetes mellitus type: type 2 Diabetes mellitus family support specialist insulin use: without family support specialist use Diabetes mellitus complication status: with hyperglycemia Qualified Code(s): E11.65 - Type 2 diabetes mellitus with hyperglycemia (7) SOB (shortness of breath) Priority: Secondary Status: Resolved (8) HLD (hyperlipidemia) Priority: Secondary Status: Chronic Qualifiers: Hyperlipidemia type: mixed hyperlipidemia Qualified Code(s): E78.2 - Mixed hyperlipidemia Hospital course: Ms. Charles is a 47 year old female with hx of DM presented to ED with SOB and chest pain. She was evaluated and found to have pneumonia and subsequently admitted. Ms Charles was admitted to med surg. She was started on IV abx and pain control. She initially had some improvement but began to worsen. She had increased oxygen requirements and pain. Repeat imaging showed worsening PNA and effusion which did not resolve with diuresis. She was seen by pulmonary and IR. No fluid from thoracentesis. CT showed fluid so chest tube was placed. She initially had some output and improvement but ultimately need Alteplase. After she had increased output from CT. Her labs improved and she was afebrile. Today chest tube was removed. She still has evidence of pneumonia and fluid and will require oxygen. She is ready for discharge with outpatient follow up. She will be on PO abx, steroids, aerosols. Discharge discussed with: patient, family, nurse - Time Spent with Patient Total time spent providing and/or coordinating discharge services: 41min - Discharge Medications Prescriptions: HYDROcodone/Acet 5/325 mg [[address] 5-325 mg] 1 tab PO Q6HR PRN 5 Days #20 tablet PRN Reason: Moderate Pain Ipratropium/Albuterol Neb [Duoneb] 3 ml IH Q6HR PRN #100 vial.neb PRN Reason: Dyspnea Benzonatate [Tessalon] 200 mg PO TID PRN #30 capsule PRN Reason: Cough Doxycycline 100 mg PO BID #28 capsule predniSONE [PredniSONE] See Taper PO DAILY #10 tablet Home Medications: Atorvastatin Calcium [Lipitor] 20 mg PO DAILY 01/23/17 [History] Cinnamon Bark [Cinnamon] 500 mg PO DAILY 01/23/17 [History] Flaxseed Oil [[place]-3 Flaxseed Oil] 1,000 mg PO DAILY 01/23/17 [History] [place]-3S/Dha/Epa/Fish Oil [Fish Oil [place]-3 Softgel] 1 tab PO DAILY 01/23/17 [ History] Benzonatate [Tessalon] 200 mg PO TID PRN #30 capsule 07/13/17 [Rx] Doxycycline 100 mg PO BID #28 capsule 07/13/17 [Rx] HYDROcodone/Acet 5/325 mg [[address] 5-325 mg] 1 tab PO Q6HR PRN 5 Days #20 tablet 07/13/17 [Rx] Ibuprofen [Motrin] 600 mg PO Q6HR PRN tablet 07/13/17 [Rx] Ipratropium/Albuterol Neb [Duoneb] 3 ml IH Q6HR PRN #100 vial.neb 07/13/17 [Rx] predniSONE [PredniSONE] See Taper PO DAILY #10 tablet 07/13/17 [Rx] Allergies/Adverse Reactions: 3 Allergy/AdvReac Type Severity Reaction Status Date / Time Penicillins Allergy Hives Verified 02/16/17 13:31 aspirin AdvReac Vomiting Verified 02/16/17 13:31 Date of admission: 07/09/17 16:02 Primary care physician: Mily Arzate CNP Consults: MELINDA Joiner Discharging clinician: Ricardo Tamez Anticipated date of discharge: 07/13/17 - Constitutional Vitals: Temp Pulse Resp BP Pulse Ox 98.3 F 83 16 127/79 95 07/13/17 07:03 07/13/17 07:03 07/13/17 15:39 07/13/17 07:03 07/13/17 16:00 General appearance: Present: cooperative, A&O X 3, pleasant, answers questions appropriately - Head Head exam: Present: normocephalic - Eye Eye exam: Present: conjuntiva pink - ENT ENT exam: Present: mucous membranes dry - Respiratory Respiratory exam: Present: decreased breath sounds. Absent: rhonchi, wheezes - Cardiovascular Cardiovascular exam: Present: RRR. Absent: tachycardia - GI/Abdominal GI/Abdominal exam: Present: soft. Absent: tenderness - Extremities Exam Extremities exam: Present: warm. Absent: tenderness - Neurological Exam Neurological exam: Present: alert, oriented X3, no focal deficits - Skin Skin exam: Present: dry, warm - Patient Status Disposition: Home, Self-Care Condition: Fair Functional capacity at discharge: independent ambulation Overall status at discharge: patient is progressing back to baseline - Ambulatory Orders Ambulatory Orders: CT chest wo con [CT] Time Frame: 1 Month, Facility: [facility], Location: Radiology - Discharge Instructions Follow Up With: Mily Arzate CNP [Primary Care Provider] - 07/14/17 11:00 am Nickie Joiner MD [Partnered Physician] - (Follow up in one month. CT of chest prior to visit. WEB REQUEST ENTERED. OFFICE WILL CALL WITH APPOINTMENT) Forms: ED Satisfaction Letter - Diet and Activity Activity: increase activity as tolerated Diet: diabetic diet
[2017-07-13] MEDS ORDERED: Aminoglycoside Consult 1 EACH MC ONE (19:07)
== END 2017-07-13 19:08 | disposition home or self-care (01) | DRG 853 ==
LOC: EMEROO 12:26 → 3ANU 12:26 → SUATTDRO 17:19
PROVIDERS: ADMIT Hospitalist; ATTEND Internal Medicine